=== PATIENT | male | born 1955 | race Caucasian/White ===

== ENCOUNTER 2025-10-01 10:12 | Emergency (ER) | payer MEDICARE, SELFPAY ==
--- OUTSIDE RECORDS SUMMARY | 2025-09-11 09:40 | XMS_ITS | Encounter Summary ---
Author Organization [facility] Address [address], [place] [address] Care Team Providers Care Sweet Dough Mixer Name Role Phone Lui Sims PA-C Primary Care Provider [phone] Reason for Referral * Consult/Transfer Care (Routine) - New Request Specialty Diagnoses / Procedures Referred By Garcia rodriguez Referred To Contact Diagnoses Pain in joint of left shoulder Neck pain Lorin Castellano MD [address] [place] [address] Phone: tel: fax: Referral ID Status Reason Start Date Expiration Date V isits Requested Visits Authorized [id number] New Request 09/11/2025 12/11/2026 1 1 Scheduling Instructions Your clinician has recommended an appointment with [facility]. You can quickly make your appointment online at [email or web address]. You can also call [phone] for help scheduling your appointment. We suggest you call your health insurance company about your coverage and benefits for this appointment. Question Answer Appointment Urgency? Non-Urgent Comments Possible left arm radicular pain MINER * Consult/Transfer Care (Routine) - New Request Specialty Diagnoses / Procedures Referred By Garcia rodriguez Referred To Contact Diagnoses Left wrist pain Pain in joint of left shoulder Lorin Castellano MD [address] [place] [address] Phone: tel: fax: Referral ID Status Reason Start Date Expiration Date V isits Requested Visits Authorized [id number] New Request 09/11/2025 12/11/2026 1 1 Scheduling Instructions Your clinician has recommended an appointment with [facility]. You can quickly schedule your appointment by signing in to your online account at [email or web address] or through the text message you may have received. You can also make an appointment by calling [phone]. We also suggest you call your health insurance provider about your benefits and coverage for this appointment. Question Answer Appointment Urgency? Within 2 Days (designee calls specialty to coordinate care) Comments Has seen Dr. Suarez before and has an appt in a month but is having a lot of pain, not just in the wrist but in the left shoulder as well MINER Reason for Visit * Reason Comments Pain Encounter Details Date Type Department Care Team (Late st Contact Info) Description 09/11/2025 9:40 AM GOLD MINER Office Visit [facility] [address] [place] [address] Lorin Castellano MD [address] [facility] [place] [address] Acute pain of left shoulder; Left wrist pain; Pain in joint of left shoulder; Neck pain; Lumbar pain Social History Tobacco Use Types Packs/Day Years Used Date Smoking Tobacco: Former Cigarettes 0.7 34.5 0 11/02/1968 - 11/02/1991 Smokeless Tobacco: Never Comments:smoked off and on - marijuana Alcohol Use Standard Drinks/Week Comments No 0 (1 standard drink = 0.6 oz pur e alcohol) PHQ-2 Answer Date Recorded PHQ-2 Score 1 12/01/2024 Sex and Gender Information Value Date Recorded Sex Assigned at Not on file Legal Sex Male 4:32 AM CDT Gender Identity Not on file Sexual Orientation Not on file 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 [employer] Not on file Not on file Not on file documented as of this encounter Last Filed Vital Signs Vital Sign Reading Time Taken Comments Blood Pressure 156/70 09/11/2025 10:18 AM GOLD MINER Pulse 54 09/11/2025 10:18 AM GOLD MINER Temperature 36.9 C (98.4 F) 09/11/2025 10:18 AM GOLD MINER Respiratory Rate 16 09/11/2025 10:18 AM GOLD MINER Oxygen Saturation 100% 09/11/2025 10:18 AM GOLD MINER Inhaled Oxygen Concentration - - Weight - - Height - - Body Mass Index - - documented in this encounter Patient Instructions * Patient Instructions* Lorin Castellano MD - 09/11/2025 9:40 AM GOLD MINER Ice the shoulder 30 min 4x/day Voltaren = diclofenac gel can be applied to the shoulder twice daily Can take tylenol 1000 mg every 6 hours in addition or instead of the ibuprofen and it is safer for your stomach and kidneys Make appt with the clinic that does your back injections MINER * Attachments The following attachments cannot be sent through Care Everywhere. * Joint Pain (Yoruba) * Joint Injections: General Info (Yoruba) documented in this encounter Progress Notes * Lorin Castellano MD - 09/11/2025 9:40 AM CST [facility] Patient: Vinicio Kellogg Date of : 1955 (70 y.o.) Subjective Nursing Notes: Yas Graham, RN 09/11/25 1017 Signed States that he is having all over body pain due to old age Has an appt with ortho, but it isnt for another month. History of Present Illness The patient is a 70-year-old with severe arthritis who presents with worsening joint pain and swelling. He has severe arthritis primarily affecting the left hand, with recent increased swelling and pain described as 'awful'. The pain extends into the bones of the hand. The pain has been progressively worsening. The steroid injection in his back has worn off, leading to widespread pain including the buttocks and difficulty walking up stairs. He experiences significant morning stiffness, which improves with movement and medication. He is currently taking ibuprofen, up to ten pills a day, to manage the pain, but expresses concern about the high dosage. Swelling in the fingers is particularly noticeable at night when wearing rings. Additional joint pain is noted in the right wrist and arm, with difficulty performing tasks such aslifting a spoon. He experiences soreness when squeezing his hands. No numbness or tingling. Neck pain is also present. He has a history of back issues, including severe stenosis, and has previously had a CRP test in November, believed to be related to his back problems. He has not had recent imaging. 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 He expresses frustration with his physical limitations and the impact on his daily activities. 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 Physical Exam: BP (!) 156/70 (BP Location: Right Arm, BP Cuff Size: Regular - Long) Pulse (!) 54 Temp 36.9 ??C(98.4 ??F) (Oral) Resp 16 SpO2 100% Gen: Alert and oriented, NAD Normal strength upper extremities but decreased ROM of wrists. He has tenderness left rotator cuff and pain with forward elevation and decreased range of motion due to pain Laboratory Testing: Results for orders placed or performed in visit on 09/11/25 Complete Blood Count-W/Diff Result Value Ref Range WBC 10.0 3.5 - 10.5 x10(9)/L RBC 4.17 (L) 4.32 - 5.72 x10(12)/L Hemoglobin 13.0 (L) 13.5 - 17.5 g/dL HCT 39.2 38.8 - 50.0 % MCV 94.0 80.0 - 100.0 fL MCH 31.2 27.6 - 33.3 pg MCHC 33.2 31.5 - 35.2 g/dL RDW 11.8 (L) 11.9 - 15.5 % Platelets 253 150 - 450 x10(9)/L Neutrophil Absolute 7.7 (H) 1.7 - 7.0 10(9)/L Lymphocyte Absolute 1.3 1.0 - 4.8 10(9)/L Monocyte Absolute 0.8 0.2 - 0.9 10(9)/L Eosinophil Absolute 0.1 0.0 - 0.5 10(9)/L Basophil Absolute 0.0 0.0 - 0.3 10(9)/L Immature Granulocyte % 0.2 0.0 - 0.5 % Radiology: No results found. MDM: known wrist arthritis and he has been receiving lumbar injections and has recurrent right low back and bilateral hip pain/stiffness. Encouraged him to follow up with [facility] who have been doing his lumbar injections. Put in a referral to ortho to try to get him in sooner than a month regarding the wrist arthritis but also address the left shoulder and a referral to PMR to look into his neck and perhaps the left arm pain is radicular. Interventions: Orders Placed This Encounter C-Reactive Protein Complete Blood Count -W/Diff Orthopedic Consult-Adult/Peds Physical Medicine & Rehab Consult-Adults Assessment 1. Acute pain of left shoulder 2. Left wrist pain 3. Pain in joint of left shoulder 4. Neck pain 5. 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 MINER documented in this encounter Plan of Treatment Upcoming Encounters Date Type Department Care Team (Late st Contact Info) Description 10/03/2025 8:35 AM GOLD MINER Appointment [facility] [address] [place] [phone] Lui Sims PA-C [address] [place], [place] [id number] 10/12/2025 2:20 PM GOLD MINER Appointment [facility] Orthopaedics & Sports Medicine [address] [place] [phone] Humberto Suarez MD [address] [facility] [address] [place] [address] 11/14/2025 8:15 AM GOLD MINER Appointment Rheumatology at [facility] [place] [address] [address] [address] [place], [place] [phone] Desilet, Luke W, DO [address] [place], [place] [address] 12/19/2025 8:40 AM GOLD MINER Appointment [facility] Orthopedic [facility] [address] [place], [place] [address] Teresa Espitia MD [address] [place] [address] Scheduled Referrals Name Type Priority Associated Diagnoses Orde r Schedule Orthopedic Consult-Adult/Peds Referral Routine Left wrist pain Pain in joint of left shoulder Ordered: 09/11/2025 Physical Medicine & Rehab Consult-Adults Referral Routine Pain in joint of left shoulder Neck pain Ordered: 09/11/2025 documented as of this encounter Results * (ABNORMAL) C-Reactive Protein (09/11/2025 10:55 AM GOLD MINER) [facility] C-Reactive Protein 10.1(H) 0.0 - 0.5 mg/dL 09/11/2025 12:35 PM GOLD MINER [facility] Blood Venipuncture / Unknown 09/11/2025 10:55 AM GOLD MINER 09/11/2025 10:55 AM GOLD MINER us Lorin Castellano MD LAB_1 Final Result [facility] CLIA: [id number] [address] [place] [address] documented in this encounter Visit Diagnoses Diagnosis Acute pain of left shoulder Left wrist pain Pain in joint, forearm Pain in joint of left shoulder Pain in joint, shoulder region Neck pain Cervicalgia Lumbar pain Lumbago documented in this encounter Care Teams Sweet Dough Mixer Relationship Specialty Start Date End Date Lui Sims PA-C [address] [place] [address] PCP - General Physician Stone Mill Operator 11/13/20 documented as of this encounter
--- OUTSIDE RECORDS SUMMARY | 2025-09-11 10:50 | XMS_ITS | Encounter Summary ---
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[employer] Not on file Not on file Not on file documented as of this encounter Plan of Treatment Upcoming Encounters Date Type Department Care Team (Late Contact Info) Description 10/03/2025 8:35 AM MACHINE SET UP OPERATOR Appointment [facility] [address] [place] [phone] Lui Sims PA-C [address] [place] [address] 10/12/2025 2:20 PM MACHINE SET UP OPERATOR Appointment [facility] Orthopaedics & Sports Medicine [address] [place] [address] Humberto Suarez MD [address] [facility] [address] [place] [address] 11/14/2025 8:15 AM MACHINE SET UP OPERATOR Appointment Rheumatology at [facility] [place] [address] [address] [address] [place], [place] [address] Desilet, René W, DO [address] [place], [place] [address] 12/19/2025 8:40 AM MACHINE SET UP OPERATOR Appointment [facility] Orthopedic [facility] [address] [place] [address] Teresa Espitia MD [address] [place] [address] documented as of this encounter Procedures Procedure Name Priority Date/Time Associated Diagnosis Comments CBC AND DIFFERENTIAL PANEL STAT 09/11/2025 10:55 AM MACHINE SET UP OPERATOR Acute pain of left shoulder Left wrist pain Pain in joint of left shoulder Neck pain COMPLETE BLOOD COUNT-W/DIFF STAT 09/11/2025 10:55 AM MACHINE SET UP OPERATOR Acute pain of left shoulder Left wrist pain Pain in joint of left shoulder Neck pain C-REACTIVE PROTEIN STAT 09/11/2025 10 :55 AM MACHINE SET UP OPERATOR Acute pain of left shoulder Left wrist pain Pain in joint of left shoulder Neck pain documented in this encounter Results * (ABNORMAL) Complete Blood Count-W/Diff (09/11/2025 10:55 AM [facility]) Pathologist [facility] WBC 10.0 3.5 - 10.5 x10(9)/L 09/11/2025 10:59 AM [facility] RBC 4.17(L) 4.32 - 5.72 x10(12)/L 09/11/2025 10:59 AM [facility] Hemoglobin 13.0(L) 13.5 - 17.5 g/dL 09/11/2025 10:59 AM [facility] HCT 39.2 38.8 - 50.0 % 09/11/2025 10:59 AM [facility] MCV 94.0 80.0 - 100.0 fL 09/11/2025 10:59 AM [facility] MCH 31.2 27.6 - 33.3 pg 09/11/2025 10:59 AM [facility] MCHC 33.2 31.5 - 35.2 g/dL 09/11/2025 10:59 AM [facility] RDW 11.8(L) 11.9 - 15.5 % 09/11/2025 10:59 AM [facility] Platelets 253 150 - 450 x10(9)/L 09/11/2025 10:59 AM [facility] Neutrophil Absolute 7.7(H) 1.7 - 7.0 10(9)/L 09/11/2025 10:59 AM [facility] Lymphocyte Absolute 1.3 1.0 - 4.8 10(9)/L 09/11/2025 10:59 AM [facility] Monocyte Absolute 0.8 0.2 - 0.9 10(9)/L 09/11/2025 10:59 AM [facility] Eosinophil Absolute 0.1 0.0 - 0.5 10(9)/L 09/11/2025 10:59 AM [facility] Basophil Absolute 0.0 0.0 - 0.3 10(9)/L 09/11/2025 10:59 AM [facility] Immature Granulocyte % 0.2 0.0 - 0.5 % 09/11/2025 10:59 AM [facility] Blood Venipuncture / Unknown 09/11/2025 10:55 AM MACHINE SET UP OPERATOR 09/11/2025 10:55 AM MACHINE SET UP OPERATOR us Lorin Castellano MD LAB_1 Final Result [facility] CLIA: [id number] [address] [place] [address], [facility] * (ABNORMAL) C-Reactive Protein (09/11/2025 10:55 AM MACHINE SET UP OPERATOR) C-Reactive Protein 10.1(H) 0.0 - 0.5 mg/dL 09/11/2025 12:35 PM MACHINE SET UP OPERATOR [facility] Blood Venipuncture / Unknown 09/11/2025 10:55 AM MACHINE SET UP OPERATOR 09/11/2025 10:55 AM MACHINE SET UP OPERATOR us Lorin Castellano MD LAB_1 Final Result Performing Organization Address City/[facility] Co de Phone Number [facility] CLIA: [id number] [address] [place] [address] documented in this encounter Visit Diagnoses Diagnosis Acute pain of left shoulder Left wrist pain Pain in joint, forearm Pain in joint of left shoulder Pain in joint, shoulder region Neck pain Cervicalgia documented in this encounter Care Teams Music Ministries Director Relationship Specialty Start Date End Date Lui Sims PA-C [address] [place] [address] PCP - General Physician Cotton Breeder 11/13/20 documented as of this encounter
--- OUTSIDE RECORDS SUMMARY | 2025-09-14 07:45 | XMS_ITS | Encounter Summary ---
Author Organization [facility] Address [address], [place] [address] Care Team Providers Care Marbleizing Machine Tender Name Role Phone Lui Sims PA-C Primary Care Provider [phone] Reason for Referral * Procedure/Equipment (Routine) - Incomplete Specialty Diagnoses / Procedures Referred By Contac t Referred To Contact Diagnoses Neck pain Bilateral arm pain Procedures MR Cervical Spine WO IV Cont Ines Carrion PA-C [address] [place] [address] Phone: tel: fax: Referral ID Status Reason Start Date Expiration Date V isits Requested Visits Authorized [id number] Incomplete 09/14/2025 12/14/2026 1 1 ASSISTANT * Procedure/Equipment (Routine) - Incomplete Specialty Diagnoses / Procedures Referred By Contac t Referred To Contact Diagnoses Bilateral shoulder pain, unspecified chronicity Procedures XR Shoulder Rt 2+ Views Ines Carrion PA-C [address] [place] [address] Phone: tel: fax: Referral ID Status Reason Start Date Expiration Date V isits Requested Visits Authorized [id number] Incomplete 09/14/2025 12/14/2026 1 1 ASSISTANT * Procedure/Equipment (Routine) - Incomplete Specialty Diagnoses / Procedures Referred By Contac t Referred To Contact Diagnoses Bilateral shoulder pain, unspecified chronicity Procedures XR Shoulder Lt 2+ Views Ines Carrion PA-C [address] [place] [address] Phone: tel: fax: Referral ID Status Reason Start Date Expiration Date V isits Requested Visits Authorized [id number] Incomplete 09/14/2025 12/14/2026 1 1 ASSISTANT * Procedure/Equipment (Routine) - Incomplete Specialty Diagnoses / Procedures Referred By Contac t Referred To Contact Diagnoses Neck pain Procedures XR Cervical Spine 2 Views Ines Carrion PA-C [address] [place] [address] Phone: tel: fax: Referral ID Status Reason Start Date Expiration Date V isits Requested Visits Authorized [id number] Incomplete 09/14/2025 12/14/2026 1 1 ASSISTANT Reason for Visit * Reason Comments CONSULT Encounter Details Date Type Department Care Team (Late st Contact Info) Description 09/14/2025 7:45 AM DIET ASSISTANT Office Visit [facility] [address] [place] [phone] Ines Carrion PA-C [address] [place] [phone] Neck pain (Primary Dx); Bilateral shoulder pain, unspecified chronicity; Bilateral arm pain; Elevated C-reactive protein (CRP) Social History Tobacco Use Types Packs/Day Years [...] 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 Ines Carrion PA-C Physician Wax Specialist General Orthopedics [facility] Advanced Imaging Scheduling: To schedule advanced imaging including MRI's, CT Scans, Ultrasounds and Fluoroscopic guided injections at a [facility] location please call [phone]. For [facility] MRI please call [phone]. Medication Requests: Prescriptions are not filled on weekends or on weekdays after 3:00 PM. For all medication refills: Request a refill using Uvers[employer]t or contact your pharmacy. [facility] Workers' Compensation [address] [place] [address] (Phone) Email: [email or web address] What is Know Your Cost? Know Your Cost is a service for patients and patient/members to call and receive personalized cost information and estimates across our care group. The phone number is (COST) Thursday - Thursday 8 AM to 5 PM Release of Information: Radiology/Imaging Health Information Management [address] [facility] [address] [place] [address] [place] [address] (Phone) [phone] (Phone) [employer] You can do all of this together: 1000mg Tylenol up to 3 times a day as needed for pain. 600mg ibuprofen every 6 hours as needed for pain, especially before activity. Rub Voltaren Gel/Diclofenac Gel (topical antiinflammatory) over the affected joint up to 4 times a day. Ice for 20 minutes 3-4 times a day, especially after activity. Lidocaine patch - okay for nighttime use, but not recommended during the day. Do not take multiple NSAIDs at the same time. Meaning pick one and stick with that one. They work the same in the body and can cause kidney trouble if you take too much. Examples of NSAIDs: ibuprofen, Motrin, Advil, Naproxen, Aleve, Toradol, Celebrex. It is not recommended to take NSAIDs when also on a blood thinner. ASSISTANT documented in this encounter Progress Notes * Ines Carrion PA-C - 09/14/2025 12:00 AM CST NAME: HALEY VELAZCO CSN: [id number] CLINIC NOTE DATE OF SERVICE: 09/14/2025 : 1955 REASON FOR VISIT: Bilateral shoulder pain. The patient is a 70-year-old male, who comes in today for his bilateral shoulder pain. The patient was seen on 09/11/2025, and was diagnosed with shoulder pain, neck pain, lumbar pain, and wrist pain. The patient states he has an extensive history of discomfort that has been periodic. 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 He states when he turns 67, he had uni ntentional weight loss and lost quite a bit of weight. He had a full workup looking for cancerous process, but nothing was made of it. He started having more lumbar pain, which sounds like he has been managed over at [facility] and he has had injections. He is now complaining about wrist pain, which he has a followup appointment with Dr. Suarez for, as well as bilateral shoulder and neck pain. He states any reaching overhead, he feels weakness. He feels limited mobility. He has pain that pulls down to the upper trapezius area and radiates into both arms. He has limited neck mobility. He denies any previous injury. He did have lab testing that was done in Urgent Care, which showed his C-reactive protein was 10.1. His CBC was normal except for some low hemoglobin. PHYSICAL EXAM: Patient has marked limitation with rotation, flexion and extension, and bending of his neck with pain that radiates down both arms. His shoulder range of motion is near full in all planes and his strength is 5/5 with subscap and infraspinatus testing, and negative drop-arm test, negative empty can test. Impingement signs were not aggravating. Upper extremity strength; he does have 4/5 strength in his biceps on the left, 4/5 with triceps on the right, 5/5 in all muscle groups. There is no significant strength deficit or weakness otherwise noted. Neurovascular exam is intact. X-rays of the bilateral shoulders were taken today and independently reviewed. Three views of the left shoulder show no significant arthritis in the AC joint. A little bit of joint space narrowing inthe glenohumeral joint. His right shoulder has mild superior subluxation of the humerus, but no significant degenerative change of the joint. 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 There is multilevel and severe intervertebral disk space narrowing and extensive osteophytic spurring. IMPRESSION: Cervical radiculopathy secondary to neck degeneration. PLAN: I discussed options with the patient. I did recommend an MRI. I put him on Medrol Dosepak andwe are going to have him follow up with my supervisory training specialist. I did review the MRI and further treatment options. I do question if he does not have some sort of underlying ankylosing spondylitis basedon his CRP being elevated and his x-ray findings. He does have multiple other joint complaints and I have to wonder that there might be something underlying that might be triggering this despite justdegenerative changes related to aging. The patient will follow up with 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. I did put him on a Medrol Dosepak for pain. All his questions were answered. INES CARRION PA-C EMS/AQS /[id number] ASSISTANT documented in this encounter Plan of Treatment Upcoming Encounters Date Type Department Care Team (Late st Contact Info) Description 10/03/2025 8:35 AM DIET ASSISTANT Appointment [facility] [address] [place] [phone] Lui Sims PA-C [address] [place], [place] [phone] 10/12/2025 2:20 PM DIET ASSISTANT Appointment [facility] [address] [place] [phone] Humberto Suarez MD [address] [facility] [address] [place], [place] [address] 11/14/2025 8:15 AM DIET ASSISTANT Appointment Rheumatology at [facility] [place] [address] [address] [address] [place], [place] [address] Desilet, René W, DO [address] [place] [address] 12/19/2025 8:40 AM DIET ASSISTANT Appointment [facility] Orthopedic [facility] [place] [address] [place], [place] [address] Teresa Espitia MD [address] [place], [place] [address] documented as of this encounter Results * MR Cervical Spine WO IV Cont (09/14/2025 11:23 AM DIET ASSISTANT) Anatomical Region Laterality Modality Spine, C-Spine, Neck, Vascular, MSK Magnetic Resonance Impressions 09/15/2025 2:32 PM DIET ASSISTANT 1. Severe bilateral neural foraminal stenosis at the C3-4 level. 2. Zpwf-yo-rmrbwclw central stenosis and severe left-sided neural foraminal stenosis at the C4-5 level. 3. Mild central stenosis and moderate right-sided neural foraminal stenosis at the C6-7 level. 4. Moderate to severe bilateral neural foraminal stenosis at the C7-T1 level. 5. Additional degenerative changes as above. No evidence for spinal cord signal abnormality. Signed by: Nino Jacobs 09/15/2025 2:32 PM Narrative 09/15/2025 2:32 PM DIET ASSISTANT EXAM: MR CERVICAL SPINE WO IV CONT INDICATION: neck pain with bilateral radiculopathy COMPARISON: None. TECHNIQUE: MRI of the cervical spine without contrast. FINDINGS: Sagittal: Mild reversal of the cervical lordosis. Probable disc space calcification C2-3 C5-6 level. Disc space narrowing mild degenerative endplate signal change C4-5 C6-7 level. Disc space narrowing partial fusion across the C5-6 disc space. 2 mm anterolisthesis T1-2 T3-4 level. Craniocervical junction, cervical spinal cord and upper visualized thoracic spinal cord appear otherwise unremarkable. Axial: C1-2 level: Hhjl-ao-auouooki degenerative ligamentous hypertrophy dorsal to the odontoid. C2-3 level: Mild right-sided facet hypertrophic change. C3-4 level: Severe bilateral neural foraminal stenosis secondary to uncinate spurring and moderate right-sided facet hypertrophic change, axial images 16. C4-5 level: Yqfa-tq-vexgozvg posterior disc osteophyte complex contributes to fetr-io-ggezysqz central stenosis AP thecal sac 8 mm. Mild right-sided severe left-sided neural foraminal stenosis secondary to uncinate spurring and mild bilateral facet hypertrophic change. C5-6 level: Mild posterior osteophytic ridge, moderate left-sided neural foraminal stenosis secondary to uncinate spurring and mild left-sided facet hypertrophic change. C6-7 level: Mild posterior disc osteophyte complex contributes to mild central stenosis AP thecal sac 9 mm. Moderate right-sided neural foraminal stenosis secondary to uncinate spurring. C7-T1 level: Mild posterior disc osteophyte complex, moderate to severe bilateral neural foraminal stenosis. T1-2 level: Mild posterior disc bulge, mild right-sided neural foraminal stenosis. Procedure Note Nino Jacobs MD - 09/15/2025 EXAM: MR CERVICAL SPINE WO IV CONT INDICATION: neck pain with bilateral radiculopathy COMPARISON: None. TECHNIQUE: MRI of the cervical spine without contrast. FINDINGS: Sagittal: Mild reversal of the cervical lordosis. Probable disc space calcificationC2-3 C5-6 level. Disc space narrowing mild degenerative endplate signalchange C4-5 C6-7 level. Disc space narrowing partial fusion across theC5-6 disc space. 2 mm anterolisthesis T1-2 T3-4 level. Craniocervicaljunction, cervical spinal cord and upper visualized thoracic spinal cordappear otherwise unremarkable. Axial: C1-2 level: Skzk-ey-bnouljaw degenerative ligamentous hypertrophy dorsalto the odontoid. C2-3 level: Mild right-sided facet hypertrophic change. C3-4 level: Severe bilateral neural foraminal stenosis secondary touncinate spurring and moderate right-sided facet hypertrophic change,axial images 16. C4-5 level: Jbqm-lo-otdpdmoi posterior disc osteophyte complex contributesto itxf-if-eawwofii central stenosis AP thecal sac 8 mm. Mild right-sidedsevere left-sided neural foraminal stenosis secondary to uncinate spurringand mild bilateral facet hypertrophic change. C5-6 level: Mild posterior osteophytic ridge, moderate left-sided neuralforaminal stenosis secondary to uncinate spurring and mild left-sidedfacet hypertrophic change. C6-7 level: Mild posterior disc osteophyte complex contributes to mildcentral stenosis AP thecal sac 9 mm. Moderate right-sided neuralforaminal stenosis secondary to uncinate spurring. C7-T1 level: Mild posterior disc osteophyte complex, moderate to severebilateral neural foraminal stenosis. T1-2 level: Mild posterior disc bulge, mild right-sided neural foraminalstenosis. IMPRESSION 1. Severe bilateral neural foraminal stenosis at the C3-4 level. 2. Rglb-pw-hqzggsfw central stenosis and severe left-sided neuralforaminal stenosis at the C4-5 level. 3. Mild central stenosis and moderate right-sided neural foraminalstenosis at the C6-7 level. 4. Moderate to severe bilateral neural foraminal stenosis at the C7-X1olsty. 5. Additional degenerative changes as above. No evidence for spinal cordsignal abnormality. Signed by: Nino Jacobs 09/15/2025 2:32 PM us Ines Carrion PA-C RAD MRI Final Result * XR Shoulder Rt 2+ Views (09/14/2025 8:10 AM DIET ASSISTANT) Anatomical Region Laterality Modality Upper Extremity, Shoulder Digita l Radiography Narrative 09/14/2025 8:12 AM DIET ASSISTANT EXAM: XR SHOULDER RT 2+ VIEWS INDICATION: bilateral shoulder pain COMPARISON: None. FINDINGS: No acute findings. Mild superior subluxation of the humerus. No significant degenerative change of the glenohumeral joint. Mild AC joint arthropathy. Signed by: Alfonzo Vital 09/14/2025 8:12 AM Procedure Note Alfonzo Vital MD - 09/14/2025 EXAM: XR SHOULDER RT 2+ VIEWS INDICATION: bilateral shoulder pain COMPARISON: None. FINDINGS: No acute findings. Mild superior subluxation of the humerus. Nosignificant degenerative change of the glenohumeral joint. Mild AC jointarthropathy. Signed by: Alfonzo Vital 09/14/2025 8:12 AM us Ines BHATTI-C RAD GD Final Result * XR Shoulder Lt 2+ Views (09/14/2025 8:09 AM DIET ASSISTANT) Anatomical Region Laterality Modality Upper Extremity, Shoulder Digita l Radiography Narrative 09/14/2025 8:12 AM DIET ASSISTANT EXAM: XR SHOULDER LT 2+ VIEWS INDICATION: shoulder pain COMPARISON: None. FINDINGS: Minimal in head humeral joint space and acromiohumeral interval maintained. No fracture or dislocation. Soft tissues normal. Visualized lung clear. Signed by: James Bethea 09/14/2025 8:12 AM Procedure Note James Bethea MD - 09/14/2025 EXAM: XR SHOULDER LT 2+ VIEWS INDICATION: shoulder pain COMPARISON: None. FINDINGS: Minimal in head humeral joint space and acromiohumeral intervalmaintained. No fracture or dislocation. Soft tissues normal. Visualizedlung clear. Signed by: James Bethea 09/14/2025 8:12 AM us Ines BHATTI-C RAD GD Final Result * XR Cervical Spine 2 Views (09/14/2025 8:09 AM DIET ASSISTANT) Anatomical Region Laterality Modality Spine, C-Spine, Neck Digital Rad iography Narrative 09/14/2025 8:14 AM DIET ASSISTANT EXAM: XR CERVICAL SPINE 2 VIEWS INDICATION: neck pain COMPARISON: None. FINDINGS: No definite acute osseous abnormality. Straightening of cervical lordosis. Normal alignment of the cervical spine. Extensive degenerative change with osteophytic spurring. Multilevel severe intervertebral disc space narrowing with likely degenerative ankylosis at C5-6. No prevertebral soft tissue swelling. Signed by: Bhavya Reich 09/14/2025 8:14 AM Procedure Note Bhavya Reich MD - 09/14/2025 EXAM: XR CERVICAL SPINE 2 VIEWS INDICATION: neck pain COMPARISON: None. FINDINGS: No definite acute osseous abnormality. Straightening of cervicallordosis. Normal alignment of the cervical spine. Extensive degenerativechange with osteophytic spurring. Multilevel severe intervertebral discspace narrowing with likely degenerative ankylosis at C5-6. Noprevertebral soft tissue swelling. Signed by: Bhavya Reich 09/14/2025 8:14 AM Ines Carrion PA-C RAD GD Final Result documented in this encounter Visit Diagnoses Diagnosis Neck pain- Primary Cervicalgia Bilateral shoulder pain, unspecified chronicity Bilateral arm pain Pain in limb Elevated C-reactive protein (CRP) Neck pain Cervicalgia Bilateral shoulder pain, unspecified chronicity Bilateral shoulder pain, unspecified chronicity Neck pain Cervicalgia Bilateral arm pain Pain in limb documented in this encounter Care Teams Marbleizing Machine Tender Relationship Specialty Start Date End Date Lui Sims PA-C [address] [place] [address] PCP - General Physician Wax Specialist 11/13/20 documented as of this encounter
--- OUTSIDE RECORDS SUMMARY | 2025-09-14 07:55 | XMS_ITS | Encounter Summary ---
Author Organization [facility] Address [address] [address] Care Team Providers Care Strainer Mill Operator Name Role Phone Lui Sims PA-C Primary Care Provider [phone] Reason for Visit * Procedure/Equipment (Routine) - Incomplete Specialty Diagnoses / Procedures Referred By Garcia t Referred To Contact Diagnoses Neck pain Procedures XR Cervical Spine 2 Views Kaylah Carrion PA-C [address] [place] [address] Phone: tel: fax: Referral ID Status Reason Start Date Expiration Date V isits Requested Visits Authorized [id number] Incomplete 09/14/2025 12/14/2026 1 1 Encounter Details Date Type Department Care Team (Late st Contact Info) Description 09/14/2025 7:55 AM LEARNING SUPPORT ASSISTANT Ancillary Procedure [facility] [place] [address] Radiology [address] [place] [address] Kaylah Carrion PA-C [address] [place] [address] Neck pain Social History Tobacco Use Types [...] 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 [employer] Not on file Not on file Not on file documented as of this encounter Plan of Treatment Upcoming Encounters Date Type Department Care Team (Late st Contact Info) Description 10/03/2025 8:35 AM LEARNING SUPPORT ASSISTANT Appointment [facility] [address] [place] [phone] Lui Sims, PAAdelfoC [address] [place] [address] 10/12/2025 2:20 PM LEARNING SUPPORT ASSISTANT Appointment [facility] Medicine [address] [place] [address] Humberto Suarez MD [address] [facility] [address] [place] [address] 11/14/2025 8:15 AM LEARNING SUPPORT ASSISTANT Appointment Rheumatology at [facility] [place] [address] [address] [address] [place], [place] [address] Desilet, René W, DO [address] [place] [address] 12/19/2025 8:40 AM LEARNING SUPPORT ASSISTANT Appointment [facility] [place] [address] [place] [address] Teresa Espitia MD [address] [facility] [address] documented as of this encounter Procedures Procedure Name Priority Date/Time Associated Diagnosis Comments XR CERVICAL SPINE 2 VIEWS Routine 09/14/2025 8:09 AM LEARNING SUPPORT ASSISTANT Neck pain documented in this encounter Results * XR Cervical Spine 2 Views (09/14/2025 8:09 AM LEARNING SUPPORT ASSISTANT) Anatomical Region Laterality Modality Spine, C-Spine, Neck Digital Rad iography Narrative 09/14/2025 8:14 AM LEARNING SUPPORT ASSISTANT EXAM: XR CERVICAL SPINE 2 VIEWS [...] Signed by: Bhavya Reich 09/14/2025 8:14 AM Kaylah Carrion PA-C RAD GD Final Result documented in this encounter Visit Diagnoses Diagnosis Neck pain Cervicalgia documented in this encounter Care Teams Strainer Mill Operator Relationship Specialty Start Date End Date Lui Sims PA-C [address] [place] [address] PCP - General Physician Production Maintenance Mechanic 11/13/20 documented as of this encounter
--- OUTSIDE RECORDS SUMMARY | 2025-09-14 08:05 | XMS_ITS | Encounter Summary ---
Author Organization [facility] Address [address] [address] Care Team Providers Care Tube Filler Name Role Phone Lui Sims PA-C Primary Care Provider [phone] Reason for Visit * Procedure/Equipment (Routine) - Incomplete Specialty Diagnoses / Procedures Referred By Contdevante t Referred To Contact Diagnoses Bilateral shoulder pain, unspecified chronicity Procedures XR Shoulder Lt 2+ Views Kaylah Carrion PA-C [address] [place] [address] Phone: tel: fax: Referral ID Status Reason Start Date Expiration Date V isits Requested Visits Authorized [id number] Incomplete 09/14/2025 12/14/2026 1 1 Encounter Details Date Type Department Care Team (Latest Contact Info) Description 09/14/2025 8:05 AM STEEL ROLLER Ancillary Procedure Dayana [place] [address] Rad[address] [address] [place] [address] Kaylah Carrion PA-C [address] [place] [address] [phone] Bilateral shoulder pain, unspecified chronicity Social History Tobacco Use Types Packs/Day Years [...] 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 [address] [place], [place] [address] 11/14/2025 8:15 AM STEEL ROLLER Appointment Rheumatology at [facility] [place] [address] [address] [address] [place] [address] Despatiencet, René W, DO [address] [place] [address] 12/19/2025 8:40 AM STEEL ROLLER Appointment [facility] [place] [address] [place] [address] Teresa Espitia MD [address] [facility] [place] [address] documented as of this encounter Procedures Procedure Name Priority Date/Time Associated Diagnosis Comments XR SHOULDER LT 2+ VIEWS Routine 09/14/2025 8:09 AM STEEL ROLLER Bilateral shoulder pain, unspecified chronicity documented in this encounter Results * XR Shoulder Lt 2+ Views (09/14/2025 8:09 AM STEEL ROLLER) Anatomical Region Laterality Modality Upper Extremity, Shoulder Digita l Radiography Narrative 09/14/2025 8:12 AM STEEL ROLLER EXAM: XR SHOULDER LT 2+ VIEWS INDICATION: [...] by: James Bethea 09/14/2025 8:12 AM us Kaylah Carrion PA-C RAD GD Final Result documented in this encounter Visit Diagnoses Diagnosis Bilateral shoulder pain, unspecified chronicity documented in this encounter Care Teams Tube Filler Relationship Specialty Start Date End Date Lui Sims PA-C [address] [place] [address] PCP - General Physician Ore Storage Drier 11/13/20 documented as of this encounter
--- OUTSIDE RECORDS SUMMARY | 2025-09-14 08:10 | XMS_ITS | Encounter Summary ---
Author Organization [facility] Address [address], [place] [address] Care Team Providers Care Metal Inspector Name Role Phone Lui Sims PA-C Primary Care Provider [phone] Reason for Visit * Procedure/Equipment (Routine) - Incomplete Specialty Diagnoses / Procedures Referred By Contdevante t Referred To Contact Diagnoses Bilateral shoulder pain, unspecified chronicity Procedures XR Shoulder Rt 2+ Views Kaylah Carrion PA-C [address] [place] [address] Phone: tel: fax: Referral ID Status Reason Start Date Expiration Date V isits Requested Visits Authorized [id number] Incomplete 09/14/2025 12/14/2026 1 1 Encounter Details Date Type Department Care Team (Latest Contact Info) Description 09/14/2025 8:10 AM DIRECTOR OF MEDICAL STAFF SERVICES Ancillary Procedure Dayana [place] [address] [address] [address] [place] [address] Kaylah Carrion PA-C [address] [place] [address] Bilateral shoulder pain, unspecified chronicity Social History [...] 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 [employer] Not on file Not on file Not on file documented as of this encounter Plan of Treatment Upcoming Encounters Date Type Department Care Team (Late st Contact Info) Description 10/03/2025 8:35 AM DIRECTOR OF MEDICAL STAFF SERVICES Appointment [facility] [address] [place] [phone] Lui Sims PA-C [address] [place], [place] [phone] 10/12/2025 2:20 PM DIRECTOR OF MEDICAL STAFF SERVICES Appointment [facility] [address] [place] [phone] Humberto Suarez MD [address] [facility] [address] [place], [place] [address] 11/14/2025 8:15 AM DIRECTOR OF MEDICAL STAFF SERVICES Appointment Rheumatology at [facility] [place] [address] [address] [address] [place] [address] Despatiencet, René W, DO [address] [place] [address] 12/19/2025 8:40 AM DIRECTOR OF MEDICAL STAFF SERVICES Appointment [facility] [place] [address] [place] [address] Teresa Espitia MD [address] [facility] [place] [address] documented as of this encounter Procedures Procedure Name Priority Date/Time Associated Diagnosis Comments XR SHOULDER RT 2+ VIEWS Routine 09/14/2025 8:10 AM DIRECTOR OF MEDICAL STAFF SERVICES Bilateral shoulder pain, unspecified chronicity documented in this encounter Results * XR Shoulder Rt 2+ Views (09/14/2025 8:10 AM DIRECTOR OF MEDICAL STAFF SERVICES) Anatomical Region Laterality Modality Upper Extremity, Shoulder Digita l Radiography Narrative 09/14/2025 8:12 AM DIRECTOR OF MEDICAL STAFF SERVICES EXAM: XR SHOULDER RT 2+ VIEWS INDICATION: [...] Signed by: Alfonzo Vital 09/14/2025 8:12 AM Kaylah Carrion PA-C RAD GD Final Result documented in this encounter Visit Diagnoses Diagnosis Bilateral shoulder pain, unspecified chronicity documented in this encounter Care Teams Metal Inspector Relationship Specialty Start Date End Date Lui Sims PA-C [address] [place] [address] PCP - General Physician Cardiographer 11/13/20 documented as of this encounter
--- OUTSIDE RECORDS SUMMARY | 2025-09-14 11:00 | XMS_ITS | Encounter Summary ---
Author Organization [facility] Address [address] [address] Care Team Providers Care Furniture Crater Name Role Phone Lui Sims PA-C Primary Care Provider [phone] Reason for Visit * Procedure/Equipment (Routine) - Incomplete Specialty Diagnoses / Procedures Referred By Garcia rodriguez Referred To Contact Diagnoses Neck pain Bilateral arm pain Procedures MR Cervical Spine WO IV Cont Kaylah Carrion PA-C [address] [place] [address] Phone: tel: fax: Referral ID Status Reason Start Date Expiration Date V isits Requested Visits Authorized [id number] Incomplete 09/14/2025 12/14/2026 1 1 Encounter Details Date Type Department Care Team (Latest Contact Info) Description 09/14/2025 11:00 AM PAVING STONE INSTALLER Ancillary Procedure Dayana [place] [address] [place] [address] [place] [address] Kaylah Carrion PA-C [address] [place] [id number] Neck pain; Bilateral arm pain Social History Tobacco Use Types Packs/Day [...] 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[employer] Not on file Not on file Not on file documented as of this encounter Plan of Treatment Upcoming Encounters Date Type Department Care Team (Late st Contact Info) Description 10/03/2025 8:35 AM PAVING STONE INSTALLER Appointment [facility] [address] [place] [phone] Lui Sims PAAdelfoC [address] [place] [address] 10/12/2025 2:20 PM PAVING STONE INSTALLER Appointment [facility] Orth[facility] Sports Medicine [address] [place] [address] Humberto Suarez MD [address] [facility] [address] [place], [place] [address] 11/14/2025 8:15 AM PAVING STONE INSTALLER Appointment Rheumatology at [facility] [place] [address] [address] [address] [place] [address] René Rivas W, DO [address] [place] [address] 12/19/2025 8:40 AM PAVING STONE INSTALLER Appointment [facility] [place] [address] [place] [address] Teresa Espitia MD [address] [facility] [place] [address] documented as of this encounter Procedures Procedure Name Priority Date/Time Associated Diagnosis Comments MR CERVICAL SPINE WO IV CONT Routine 09/14/2025 11:23 AM PAVING STONE INSTALLER Neck pain Bilateral arm pain documented in this encounter Results * MR Cervical Spine WO IV Cont (09/14/2025 11:23 AM PAVING STONE INSTALLER) Anatomical Region Laterality Modality Spine, C-Spine, Neck, Vascular, MSK Magnetic Resonance Impressions 09/15/2025 2:32 PM PAVING STONE INSTALLER 1. Severe bilateral neural foraminal stenosis at the C3-4 level. 2. Xxql-sd-izagzxlp central stenosis and severe left-sided neural foraminal stenosis at the C4-5 level. 3. Mild central stenosis and moderate right-sided neural foraminal stenosis at the C6-7 level. 4. Moderate to severe bilateral neural foraminal stenosis at the C7-T1 level. 5. Additional degenerative changes as above. No evidence for spinal cord signal abnormality. Signed by: Nino Jacobs 09/15/2025 2:32 PM [place] 09/15/2025 2:32 PM PAVING STONE INSTALLER EXAM: MR CERVICAL SPINE WO IV CONT [...] cord appear otherwise unremarkable. Axial: C1-2 level: Xafq-wd-peyepfrs degenerative ligamentous hypertrophy dorsal to the odontoid. C2-3 level: Mild right-sided facet hypertrophic change. C3-4 level: Severe bilateral neural foraminal stenosis secondary to uncinate spurring and moderate right-sided facet hypertrophic change, axial images 16. C4-5 level: Vlia-by-fmwnpawx posterior disc osteophyte complex contributes to hupf-hx-fravogzf central stenosis AP thecal sac 8 mm. [...] spinal cordappear otherwise unremarkable. Axial: C1-2 level: Odai-fm-lqdxotsw degenerative ligamentous hypertrophy dorsalto the odontoid. C2-3 level: Mild right-sided facet hypertrophic change. C3-4 level: Severe bilateral neural foraminal stenosis secondary touncinate spurring and moderate right-sided facet hypertrophic change,axial images 16. C4-5 level: Rpij-se-vnjcdzyu posterior disc osteophyte complex contributesto pqnd-uq-jjmqyuzk central stenosis AP thecal sac 8 mm. [...] foraminal stenosis at the C3-4 level. 2. Qfgq-hf-keaepywi central stenosis and severe left-sided neuralforaminal stenosis at the C4-5 level. 3. Mild central stenosis and moderate right-sided neural foraminalstenosis at the C6-7 level. 4. Moderate to severe bilateral neural foraminal stenosis at the C7-C1czbkn. 5. Additional degenerative changes as above. No evidence for spinal cordsignal abnormality. Signed by: Nino Jacobs 09/15/2025 2:32 PM us Kaylah Carrion PA-C RAD MRI Final Result documented in this encounter Visit Diagnoses Diagnosis Neck pain Cervicalgia Bilateral arm pain Pain in limb documented in this encounter Care Teams Furniture Crater Relationship Specialty Start Date End Date Lui Sims PA-C [address] [place] [address] PCP - General Physician Chief Mechanical Officer 11/13/20 documented as of this encounter
--- OUTSIDE RECORDS SUMMARY | 2025-09-21 13:00 | XMS_ITS | Encounter Summary ---
Author Organization [facility] Address [address] [place] [address] Care Team Providers Care Supervisor Public Health Nursing Name Role Phone Lui Sims PA-C Primary Care Provider [phone] Reason for Referral * Consult/Transfer Care (Routine) - New Request Specialty Diagnoses / Procedures Referred By Garcia t Referred To Contact Diagnoses Cervical radiculopathy Foraminal stenosis of cervical region 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, MANAGER CARDIAC CATH, DIRECTORY CLERK [address] [place] [address] Phone: tel: fax: Referral ID Status Reason Start Date Expiration Date V isits Requested Visits Authorized [id number] New Request 09/21/2025 12/21/2026 1 1 Scheduling Instructions Your clinician has recommended an appointment with a [facility] Surgeon. You can quickly schedule your appointment by signing in to your online account at [email or web address] or through the text message you may have received. You can also call [phone] for help scheduling your appointment. We suggest you call your health insurance company about your coverage and benefits for this appointment. Question Answer Appointment Urgency? Non-urgent Reason for visit? Cervical radiculopathy Comments Hemoglobin A1C Date Value Ref Range Status 06/01/2024 6.1 (H) <=5.6 % Final Estimated body mass index is 22.53 kg/m as calculated from the following: Height as of 07/11/24: 1.778 m (5' 10). Weight as of 12/01/24: 71.2 kg (157 lb). Social History Tobacco Use Smoking status: Former Packs/day: 0.00 Years: 0.7 packs/day for 34.5 years (23.0 ttl pk-yrs) Types: Cigarettes Start date: 11/02/1968 Quit date: 11/02/1991 Years since quittin.9 Smokeless tobacco: Never Tobacco comments: smoked off and on - marijuana Please note, A1c>8, a BMI >40 or <18.5 or a positive nicotine status will delay surgical recommendations given the negative impact on surgical outcome for the patient. 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 Jimy Farrar. Contact [facility] to schedule. 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 CNP Orthopedic Spine [facility] E SHEAR OPERATOR documented in this encounter Progress Notes * 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 APRN, CNP - 09/21/2025 1:00 PM CST Images from the original note were not included. [facility]: HPI: Vinicio Kellogg is a 70 y.o. male who presents today for initial consult for neck pain. He feels he probably has experienced pain for years although it really started to become noticeable about one week ago when he was seen at [facility]. He was prescribed a Medrol Dose Pack and is really not sure if it was helpful. He rates his pain 10/10. He is somewhat nonspecific to his pain pattern although notes constant pain along the bilateral neck. His neck pain bothers him with turning his head. 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 He describes arm pain, non-specific to his arm pain pattern. He has bilateral wrist pain with arthritis, Left>Right, and sees Dr. Suarez. He notes N/T along the ring and small finger of the right hand. He describes weakness to the hands bilaterally. He has a h/o low back pain as well and is seen at [facility] and had previous lumbar TANNER in 10/2024 which he found helpful. He takes ibuprofen for his pain prn and finds it somewhat helpful. He also uses ice to the painful areas. He has not had recent cervical spine injections or PT for his neck pain. He notes his balance has been off sometimes. He denies falls. He denies bowel/bladder incontinence. Past Medical History[1] Problem List[2] Review Of Systems Musculoskeletal: neck pain Neurologic: N/T right hand ROS: 10 point ROS neg other than the symptoms noted above in the HPI. PHYSICAL EXAM: HEENT: Normocephalic, atraumatic. EOM's intact. Heart: No peripheral edema Lungs: No SOB Skin: Warm and dry, good capillary refill. Extremities: no edema, cyanosis NEUROLOGICAL EXAMINATION: Mental status: Awake and alert; answers questions appropriately, speech is fluent. Cranial nerves: II-XII grossly intact. Motor: Shoulder Abduction: Right: 03/06 Left: 03/06 Biceps: Right: 03/06 Left: 03/06 Triceps: Right: 03/06 Left: 03/06 Wrist Extensors: Right: 03/06 Left: 03/06 Wrist Flexors: Right: 03/06 Left: 03/06 interosseus : Right: 03/06 Left: 03/06 Hip Flexor: Right: 03/06 Left: 03/06 Hip Adductor: Right: 03/06 Left: 03/06 Hip Abductor: Right: 03/06 Left: 03/06 Gastroc Soleus: Right: 03/06 Left: 03/06 Tib/Ant: Right: 03/06 Left: 03/06 EHL: Right: 03/06 Left: 03/06 DF: Right: 03/06 Left: 03/06 PF: Right: 03/06 Left: 03/06 Reflexes: BUE DTR: Biceps 2+ symmetric Brachioradialis 1+ symmetric BLE DTR: Patellar: 2+ symmetric Achilles: 1+ symmetric Sensation intact to light touch to BUE Clonus negative Parry's test positive Spurling's test positive Gait: Stable, independent Cervical examination reveals good limited of motion with pain. Diffuse tenderness to palpation of the cervical spine along the paraspinous muscles bilaterally. Lumbar examination reveals tenderness of the spine midline and bilateral paraspinous muscles. Limited ROM. Negative SI joint, sciatic notch or greater trochanteric tenderness to palpation bilaterally. Straight leg raise is negative bilaterally. Imaging: MR Cervical Spine WO IV Cont Order: [id number] Status: Final result Next appt: Today at 03:30 PM in Orthopedics (Humberto Suarez MD) Dx: Neck pain; Bilateral arm pain Test Result Released: Yes (seen) Details Reading Physician Reading Date Result Priority Nino Jacobs MD [phone] 09/15/2025 Routine Narrative & Impression EXAM: MR CERVICAL SPINE WO IV CONT [...] cord appear otherwise unremarkable. Axial: C1-2 level: Kwdf-gd-xvtimiwx degenerative ligamentous hypertrophy dorsal to the odontoid. C2-3 level: Mild right-sided facet hypertrophic change. C3-4 level: Severe bilateral neural foraminal stenosis secondary to uncinate spurring and moderate right-sided facet hypertrophic change, axial images 16. C4-5 level: Ihsv-yz-rjyrkjhv posterior disc osteophyte complex contributes to txbv-vn-gpznjpwq central stenosis AP thecal sac 8 mm. [...] disc bulge, mild right-sided neural foraminal stenosis. IMPRESSION 1. Severe bilateral neural foraminal stenosis at the C3-4 level. 2. Yzxo-iw-pcroobjk central stenosis and severe left-sided neural foraminal stenosis at the C4-5 level. 3. Mild central stenosis and moderate right-sided neural foraminal stenosis at the C6-7 level. 4. Moderate to severe bilateral neural foraminal stenosis at the C7-T1 level. 5. Additional degenerative changes as above. No evidence for spinal cord signal abnormality. Signed by: Nino Jacobs 09/15/2025 2:32 PM Exam Ended: 09/14/25 11:23 Last Resulted: 09/15/25 14:32 XR Cervical Spine 2 Views Order: [id number] Status: Final result Next appt: 09/26/2025 at 09:30 AM in Orthopedics (Jimy Farrar MD) Dx: Neck pain Test Result Released: Yes (seen) Details Reading Physician Reading Date Result Priority Bhavya Reich MD [phone] 09/14/2025 Routine Narrative & Impression EXAM: XR CERVICAL SPINE 2 VIEWS INDICATION: neck pain COMPARISON: None. FINDINGS: No definite acute osseous abnormality. Straightening of cervical lordosis. Normal alignment of the cervical spine. Extensive degenerative change with osteophytic spurring. Multilevel severe intervertebral disc space narrowing with likely degenerative ankylosis at C5-6. No prevertebral soft tissue swelling. Signed by: Bhavya Reich 09/14/2025 8:14 AM Exam Ended: 09/14/25 08:09 Last Resulted: 09/14/25 08:14 Assessment: I reviewed Vinicio's cervical MRI results with significant canal narrowing at C4- 5 with partial discspace fusion at C5-6. He has multilevel foraminal narrowing likely contributing to his pain as well. He is somewhat nonspecific to his pain pattern along the BUE however, notes his BUE are weak and he has N/T. He has full strength one exam, although appears uncomfortable with some strength testing with resistance. I was able to appreciate mild positive Parry's on exam. I would like him to f/u for evaluation with Dr. Farrar for recommendations for next step treatment options and he is agreeable. He had MRI, cervical A/P and lateral XR. I informed him that he would likely need further XR athis visit with Dr. Farrar including flexion and extension to view stability of the spine. If he has any questions he will contact the clinic. Plan: 1) Tizanidine as needed (do not drive while taking, only take while at home) 2) Schedule appointment with ortho/spine Dr. Jimy Farrar. Contact [facility] to schedule. 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) Essential hypertension (HRC) Tear film insufficiency Tubular adenoma Depression, major (HRC) Prediabetes CAREPLAN: ADVANCE DIRECTIVES/CODE STATUS Choroidal nevus Dermatochalasis of both upper eyelids Nuclear sclerosis Adenomatous polyp of colon Pancreatic cyst (HRC) E SHEAR OPERATOR documented in this encounter Plan of Treatment Upcoming Encounters Date Type Department Care Team (Late st Contact Info) Description 10/03/2025 8:35 AM ANGLE SHEAR OPERATOR Appointment [facility] [address] [place] [phone] Lui Sims PA-C [address] [place] [address] 10/12/2025 2:20 PM ANGLE SHEAR OPERATOR Appointment [facility] [address] [place] [phone] Humberto Suarez MD [address] [facility] [address] [place] [address] 11/14/2025 8:15 AM ANGLE SHEAR OPERATOR Appointment Rheumatology at [facility] [place] [address] [address] [address] [place], [place] [address] René Rivas DO [address] [place], [place] [address] 12/19/2025 8:40 AM ANGLE SHEAR OPERATOR Appointment [facility] [place] [address] [place], [place] [address] Teresa Espitia MD [address] [place] [address] Scheduled Referrals Name Type Priority Associated Diagnoses Orde r Schedule Spine-Surgical Consult-Adults Referral Routine Cervical radiculopathy Foraminal stenosis of cervical region Ordered: 09/21/2025 documented as of this encounter Visit Diagnoses Diagnosis Cervical radiculopathy- Primary Brachial neuritis or radiculitis nos Foraminal stenosis of cervical region Spinal stenosis in cervical region Neck pain Cervicalgia Cervical stenosis of spinal canal Spinal stenosis in cervical region DDD (degenerative disc disease), cervical (HRC) Degeneration of cervical intervertebral disc documented in this encounter Care Teams Supervisor Public Health Nursing Relationship Specialty Start Date End Date Lui Sims PA-C [address] [place] [address] PCP - General Physician Director [employer] 11/13/20 documented as of this encounter
--- OUTSIDE RECORDS SUMMARY | 2025-09-21 15:30 | XMS_ITS | Encounter Summary ---
Author Organization [employer] Address [address], [place] [address] Care Team Providers Care Drying Oven Attendant Name Role Phone Lui Sims PA-C Primary Care Provider [phone] Reason for Visit * Reason Comments Follow-up Wrists Encounter Details Date Type Department Care Team (Latest Contact Info) Description 09/21/2025 3:30 PM COMMISSARY STEWARD Office Visit [facility] Orthopaedics & Sports Medicine [address] [place] [address] Humberto Suarez MD [address] [facility] [address] [place], [place] [address] Bilateral wrist pain (Primary Dx); Slac (scapholunate advanced collapse) of wrist, left; Slac (scapholunate advanced collapse) of wrist, right Social History Tobacco Use Types Packs/Day Years [...] 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 Not on file Not on file Not on file documented as of this encounter Progress Notes * Humberto Suarez MD - 09/21/2025 3:30 PM CST Vinicio Kellogg [id number] Date of Visit: 09/22/25 Orthopedic Hand and Upper Extremity Consultation Chief Complaint: Right wrist pain Interval history: Vinicio returns to discuss today his wrist pain. He reports bilateral upper extremity pain he describes pain radiating from his shoulders down his arms. He reports pain in his neck and pain in each of his wrists. He recently underwent updated cervical spine imaging ever like to discuss this has well today. History of Present Illness: Vinicio Kellogg is a 70 y.o. male who presents for evaluation of his bilateral wrist. He reports pain in each of his wrist his left is worse than his right he has had pain for years. Seems to be getting worse. He has never had cortisone injections into the wrist. He does not use braces to often. Hewill occasionally use ibuprofen for pain relief. Both of his wrist pains are worse with activity. 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 Heavy chores seemed to cause the pain to worsen. He has had previous carpal tunnel release bilaterally done about a decade ago. His pain is now something that is off and on more and less intense. He will use [id number] medicines like ibuprofen. He is here today to discuss any treatment options. 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 He is a nonsmoker. 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 y/o male. Alert. PULMONARY: non-labored breathing, symmetrical chest rise, CARDIAC: Distal perfusion to the upper extremities is intact MUSCULOSKELETAL: Bilateral Wrist: Insp/Palp: Prior healed carpal tunnel incision release. Patient is painful and tender to palpate atthe dorsal radiocarpal articulation scaphoid Valenzuela shift test causes pain. Some slight crepitationcan be appreciated. Dorsal radial swelling present. Stability: No obvious instability. Strength: Extensors 5/5. Flexors 5/5. AROM: Flexion is 45??, Extension is 50??. Special Tests: Tinel's sign is negative at the carpal tunnel. Carpal compression test is negative. Gil's test is negative. Fingers: Insp/Palp: Arthritic deformities are present. Fingers move reasonable well patient is able to form a composite fist. Skin: Skin warm and dry with no evidence of unusual rashes or suspicious lesions. Neuro: Neurovascularly intact at the affected site. Psych: Mood and affect is normal. Cognition: Alert and oriented x3. Memory is intact. 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 Dorsal intercalated segmental instability SLAC wrist arthrosis. Type 2 lunate. The scaphoid is articulating primarily with this capitate at this point. Radiographs of the right wrist: Severe midcarpal arthritis. Evidence of chondrocalcinosis. Distal radioulnar joint arthritis. Assessment: Diagnosis and Associated Orders ICD-10-CM 1. Bilateral wrist pain M25.531 M25.532 2. 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 Slac (scapholunate advanced collapse) of wrist, right M19.131 Plan: We rediscussed in visited the pathophysiology of SLAC wrist arthritis. Essentially Vinicio's optionsat this time are to use braces cortisone injections or simply deal with the pain. From a surgical perspective we could consider a scaphoid excision and intercarpal fusion. Ultimately I do not feel that this has his most pressing issue at this time. He was recently referred to visit with the spine team . I recommend he meet with our cervical spine colleagues to decide whether anything needs to be done with his neck or not. He will follow up with me in the future to consider cortisone injection into the wrist. Humberto Suarez MD ISSARY STEWARD documented in this encounter Plan of Treatment Upcoming Encounters Date Type Department Care Team (Late st Contact Info) Description 10/03/2025 8:35 AM COMMISSARY STEWARD Appointment [facility] [address] [place] [address] Lui Sims PA-C [address] [place], [place] [id number] 10/12/2025 2:20 PM COMMISSARY STEWARD Appointment [facility] Orthopaedics & Sports Medicine [address] [place] [address] Humberto Suarez MD [address] [facility] [place] [address] [place] [address] 11/14/2025 8:15 AM COMMISSARY STEWARD Appointment Rheumatology at [facility] [place] [address] [address] [address] [place] [address] Desilet, René W, DO [address] [place] [address] 12/19/2025 8:40 AM COMMISSARY STEWARD Appointment [facility] Orthopedic [facility] [address] [place] [address] Teresa Espitia MD [address] [place] [address] documented as of this encounter Visit Diagnoses Diagnosis Bilateral wrist pain- Primary Slac (scapholunate advanced collapse) of wrist, left Slac (scapholunate advanced collapse) of wrist, right documented in this encounter Care Teams Drying Oven Attendant Relationship Specialty Start Date End Date Lui Sims PA-C [address] [place] [address] PCP - General Physician Ice Cream Machine Operator 11/13/20 documented as of this encounter
--- OUTSIDE RECORDS SUMMARY | 2025-09-26 09:15 | XMS_ITS | Encounter Summary ---
Author Organization [facility] Address [address], [place] [address] Care Team Providers Care Guide Cruise Name Role Phone Lui Sims PA-C Primary Care Provider [phone] Reason for Visit * Procedure/Equipment (Routine) - Incomplete Specialty Diagnoses / Procedures Referred By Garcia t Referred To Contact Diagnoses Cervical radiculopathy Procedures XR Cervical Spine 2 Views Flex/Ext Only Jimy Farrar MD [address] [facility] [place] [address] Phone: tel: fax: Referral ID Status Reason Start Date Expiration Date V isits Requested Visits Authorized [id number] Incomplete 09/26/2025 12/26/2026 1 1 Encounter Details Date Type Department Care Team (Late st Contact Info) Description 09/26/2025 9:15 AM TOOL ENGINEER Ancillary Procedure [facility] [address] [place], [place] [address] Jimy Farrar MD [address] [facility] [place] [address] Social History Tobacco Use Types Packs/Day Years [...] 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 [employer] Not on file Not on file Not on file documented as of this encounter Plan of Treatment Upcoming Encounters Date Type Department Care Team (Late st Contact Info) Description 10/03/2025 8:35 AM TOOL ENGINEER Appointment [facility] [address] [place] [phone] Lui Sims PA-C [address] [place] [address] 10/12/2025 2:20 PM TOOL ENGINEER Appointment [facility] Orthopaedics & Sports Medicine [address] [place] [phone] Humberto Suarez MD [address] [facility] [address] [place], [place] [address] 11/14/2025 8:15 AM TOOL ENGINEER Appointment Rheumatology at [facility] [place] [address] [address] [address] [place], [place] [address] Desilet, René W, DO [address] [place] [address] 12/19/2025 8:40 AM TOOL ENGINEER Appointment [facility] [address] [place] [address] Teresa Espitia MD [address] [facility] [place] [address] documented as of this encounter Procedures Procedure Name Priority Date/Time Associated Diagnosis Comments XR CERVICAL SPINE 2 VIEWS FLEX/EXT ONLY Routine 09/26/2025 9:28 AM TOOL ENGINEER Cervical radiculopathy documented in this encounter Results * XR Cervical Spine 2 Views Flex/Ext Only (09/26/2025 9:28 AM TOOL ENGINEER) Anatomical Region Laterality Modality Spine, C-Spine, Neck Digital Rad iography Narrative 09/26/2025 9:31 AM TOOL ENGINEER EXAM: XR CERVICAL SPINE 2 VIEWS FLEX/EXT ONLY INDICATION: Cervical radiculopathy COMPARISON: 09/14/2025. FINDINGS: No acute bony abnormalities. Advanced degenerative disc and facet disease throughout the cervical spine. Apparent fusion at C5-6 again noted. No prevertebral soft tissue swelling. No significant instability seen on flexion-extension views. Signed by: Julian Chaidez 09/26/2025 9:31 AM Procedure Note Julian Chaidez MD - 09/26/2025 EXAM: XR CERVICAL SPINE 2 VIEWS FLEX/EXT ONLY INDICATION: Cervical radiculopathy COMPARISON: 09/14/2025. FINDINGS: No acute bony abnormalities. Advanced degenerative disc and facet diseasethroughout the cervical spine. Apparent fusion at C5-6 again noted. Noprevertebral soft tissue swelling. No significant instability seen onflexion-extension views. Signed by: Julian Chaidez 09/26/2025 9:31 AM Jimy Farrar MD RAD GD Final R esult documented in this encounter Visit Diagnoses Not on filedocumented in this encounter Care Teams Guide Cruise Relationship Specialty Start Date End Date Lui Sims PA-C [address] [place] [address] PCP - General Physician Manager Diabetes 11/13/20 documented as of this encounter
--- OUTSIDE RECORDS SUMMARY | 2025-09-26 09:30 | XMS_ITS | Encounter Summary ---
Author Organization [facility] Address [address], [place] [address] Care Team Providers Care Cmv Driver Name Role Phone Lui Sims PA-C Primary Care Provider [phone] Reason for Referral * Consult/Transfer Care (Routine) - New Request Specialty Diagnoses / Procedures Referred By Garcia rodriguez Referred To Contact Diagnoses Polyarthralgia Subha Farrar MD [address] [place] [address] Phone: tel: fax: Referral ID Status Reason Start Date Expiration Date V isits Requested Visits Authorized [id number] New Request 09/26/2025 12/26/2026 1 1 Scheduling Instructions Your clinician has recommended an appointment with [facility]. You may call [phone] for help scheduling your appointment. We suggest you call your health insurance company about your coverage and benefits for this appointment. Question Answer Appointment Urgency? Non-Urgent Reason for visit? synovitis, swollen wrists/hands, elevated CRP; polyarthralgias, improved with NSAID's and prednisone [employer] * Procedure/Equipment (Routine) - New Request Specialty Diagnoses / Procedures Referred By Garcia rodriguez Referred To Contact Diagnoses Bilateral hand numbness Subha Farrar MD [address] [place] [address] Phone: tel: fax: Referral ID Status Reason Start Date Expiration Date V isits Requested Visits Authorized [id number] New Request 09/26/2025 12/26/2026 1 1 Scheduling Instructions Your clinician has recommended an appointment with [facility]. You can quickly make your appointment online at [employer]/[email or web address]. You can also call [phone] for help scheduling your appointment. We suggest you call your health insurance company about your coverage and benefits for this appointment. Question Answer Appointment Urgency? Non-Urgent Reason For Visit Ulnar Neuropathy/Cubital Tunnel Syndrome Number of Limbs Upper Limb Upper Limbs Bilateral [employer] * Procedure/Equipment (Routine) - Incomplete Specialty Diagnoses / Procedures Referred By Contac t Referred To Contact Diagnoses Cervical radiculopathy Procedures XR Cervical Spine 2 Views Flex/Ext Only Subha Farrar MD [address] [facility] [place] [address] Phone: tel: fax: Referral ID Status Reason Start Date Expiration Date V isits Requested Visits Authorized [id number] Incomplete 09/26/2025 12/26/2026 1 1 [employer] Reason for Visit * Reason Comments CONSULT * Consult/Transfer Care (Routine) - New Request Specialty Diagnoses / Procedures Referred By Contac t Referred To Contact Diagnoses Cervical radiculopathy Foraminal stenosis of cervical region 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, RETAIL PHARMACIST, DATABASE ARCHITECT [address] [place] [address] Phone: tel: fax: Referral ID Status Reason Start Date Expiration Date V isits Requested Visits Authorized [id number] New Request 09/21/2025 12/21/2026 1 1 Encounter Details Date Type Department Care Team (Late st Contact Info) Description 09/26/2025 9:30 AM CHILD CARE ATTENDANT [employer]CHOOL Office Visit [facility] Orthopedic [facility] [address] [place] [address] Subha Farrar MD [address] [facility] [place] [address] Cervical radiculopathy (Primary Dx); Bilateral hand numbness; Polyarthralgia Social History Tobacco Use Types Packs/Day Years [...] 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 Dr. Subha Farrar MD Orthopedic Spine Surgeon Medication Requests: Prescriptions are not filled on weekends or on weekdays after 3:00 PM. For all medication refills: Request a refill using [employer] or contact your pharmacy. What is Know Your Cost? Know Your Cost is a service for patients and patient/members to call and receive personalized cost information and estimates across our care group. The phone number is (COST) Thursday - Thursday 8 AM to 5 PM Advanced Imaging Scheduling: To schedule an MRI, Ultrasound, or Image guided injection at [facility] please call [phone]. To schedule an MRI or CT at a [facility] location please call [phone]. [facility] Workers' Compensation [address] [place], [place] [address] (Phone) Email: [email or web address] Release of Information: Radiology/Imaging [address] [place] [address] (Phone) Health Information Management [address] [place] [address] (Phone) Gen[employer] Schedule your EMG: Call [phone] to schedule an appointment with [facility] or [facility] [place] Call [phone] to schedule an appointment with [facility] - [place] Call [phone] to schedule an appointment with [facility]UROLOGY - [facility] OR Call [phone] to schedule an appointment with [facility] Will call with results of EMG study and next steps [employer] documented in this encounter Progress Notes * Subha Farrar MD - 09/26/2025 12:00 AM CST NAME: HALEY KELLOGG CSN: [id number] CLINIC NOTE DATE OF SERVICE: 09/26/2025 : 1955 REASON FOR VISIT: Question cervical radiculopathy. HISTORY OF PRESENT ILLNESS: Mr. Kellogg is a very pleasant 70-year-old gentleman, who comes in as a referral from 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. Patient has a complex history related to polyarthralgias. He has diffuse pain with arthritis and describes swelling in multiple joints. He notes that the swelling significantly improves with anti-inflammatories. He notes pain that is worse at the start of the day and gets better throughout the day as he is more active. He notes that his hands and wrists are puffy as well as his elbows now. He notes that he has numbness and tingling in the pinky and ring finger bilaterally, right worse than left. He also has been seen with [facility] and has been seeing hip and lumbar folks there. He is scheduled to have an injection in the near future. PAST MEDICAL HISTORY: Patient reports overall being healthy. He reports hypertension. He also has ahistory of bilateral carpal tunnel releases many years ago. 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 EXAM: He has a non-myopathic gait pattern. He has swollen bilateral hands and wrists. He has synovitis of bilateral dorsal wrists. He has difficulty making a fist bilaterally. He has full 5/5 strength to bilateral upper and lower extremities. I am unable to elicit Jerald reflex on examination today, but note from 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 indicated a positive Jerald on prior examination. I do not see hyperreflexia in the lower extremities. Negative ankle clonus. There is equivocal Tinel at the cubitaltunnels bilaterally. IMAGING REVIEW: Cervical MRI dated 09/14/2025 is reviewed. This shows what appears to be an autofusion from C2 to C4 as well as C5-C6. There is resulting disc degeneration and stenosis at C4-5 and C6-C7. He does have some moderate neural foraminal stenosis at C7-T1 bilaterally. Most recent EMG that I have access to is from 2014 which shows moderate carpal tunnel. LABORATORY REVIEW: Patient had a recent CRP from 09/11/2025, which was markedly elevated at 10.1. Nine months ago, it was normal at 0.2. ASSESSMENT AND PLAN: A 70-year-old gentleman with, 1. Polyarthralgias, wrist synovitis, elevated CRP, question inflammatory arthritis. 2. 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 3. History of bilateral carpal tunnel surgery, positive Tinel at the cubital tunnel. I had a long discussion with the patient about his symptoms. I reviewed things with him that there is a wide range of things on the differential. He does have multilevel cervical foraminal stenosis. I think that an EMG would be most helpful in listing whether this is a peripheral nerve entrapment or potential cervical impingement. In this case, I think with his history of bilateral carpal tunnel syndrome and surgeries as well as wrist issues, I think EMG of the bilateral upper extremities will be the next appropriate test. Secondly, there is a concern of polyarthralgias as well as his swollen joints. He has synovitis on examination today. He also has elevated CRP from a couple of weeks ago. He previously did have a rheumatologic workup back in November which was unrevealing. I think that rather than doing other rheumatologic panel, it may make sense for him to see a longwall shearer operator to see if there is a unifying diagnosis considering the amount of swelling in his hands today. He agrees. I will put a referral in to Rheumatology. We will get bilateral upper extremity EMG. All questions answered. SUBHA FARRAR MD STONEY/AQS /[id number] [employer] documented in this encounter Plan of Treatment Upcoming Encounters Date Type Department Care Team (Late st Contact Info) Description 10/03/2025 8:35 AM CHILD CARE ATTENDANT [employer]CHOOL Appointment [facility] [address] [place] [address] Lui Sims PA-C [address] [place] [address] 10/12/2025 2:20 PM CHILD CARE ATTEND[employer] Appointment [facility] Orthopaedics & Sports Medicine [address] [place] [address] [place] [address] [place] [address] [address] [place] [address] 11/14/2025 8:15 AM CHILD CARE ATTENDANT [employer]OL Appointment Rheumatology at [facility] [place] [address] [address] [address] [place] [address] René Rivas DO [address] [place] [address] 12/19/2025 8:40 AM CHILD CARE [employer]OL Appointment [facility] Orthopedic [place] [id number] [place] [address] Teresa Espitia MD [address] [place] [address] Scheduled Referrals Name Type Priority Associated Diagnoses Orde r Schedule REHAB--EMG ELECTRICAL NERVE CONDUCTION STUDY (AMB) Referral Routine Bilateral hand numbness Ordered: 09/26/2025 Rheumatology Consult-Adults Referral Routine Polyarthralgia Ordered: 09/26/2025 documented as of this encounter Procedures Procedure Name Priority Date/Time Associated Diagnosis Comments XR CERVICAL SPINE 2 VIEWS FLEX/EXT ONLY Routine 09/26/2025 9:28 AM CHILD CARE ATTENDANT [employer]OL Cervical radiculopathy documented in this encounter Results * XR Cervical Spine 2 Views Flex/Ext Only (09/26/2025 9:28 AM CHILD [employer]ARE ATT[employer]) Anatomical Region Laterality Modality Spine, C-Spine, Neck Digital Rad iography Narrative 09/26/2025 9:31 AM CHILD CARE ATTENDANT [employer]OL EXAM: XR CERVICAL SPINE 2 VIEWS FLEX/EXT [...] Signed by: Julian Chaidez 09/26/2025 9:31 AM Subha Farrar MD RAD GD Final R esult documented in this encounter Visit Diagnoses Diagnosis Cervical radiculopathy- Primary Brachial neuritis or radiculitis nos Bilateral hand numbness Disturbance of skin sensation Polyarthralgia Pain in joint, multiple sites documented in this encounter Care Teams Cmv Driver Relationship Specialty Start Date End Date Lui Sims PA-C [address] [place] [address] PCP - General Physician Unloading Checker 11/13/20 documented as of this encounter
[2025-10-01 10:33] VITALS: BP 147/75; PULSE 70; RESP 20; TEMP 36.9; O2SAT 98; BMI 21.4
--- NOTE | 2025-10-01 11:26 | ED.GENADULT ---
HPI - General Adult General Date Seen: 10/01/25 Chief complaint: Back Injury/Pain Stated complaint: in alot of pain Time Seen by Provider: 10/01/25 10:51 History of Present Illness HPI narrative: Patient is a 70-year-old man here with complaints of generalized pain, particularly pain and swelling in his hands. He has been having trouble for at least a month, really it looks like his arthritis type pain goes back till at least November of this year. He doctors through [facility] and has seen several people for these symptoms, going through the notes he has with him it looks like has seen orthopedics as well as his primary PA, he has an appointment coming up on Thursday with his regular doctor, and has appointment scheduled for an EMG and rheumatology in November and December. He has had a cervical spine MRI which showed significant neural foraminal stenosis, but no acute findings. He has pain he says in his entire body, he is not really able to be more specific than that although he says his hands are so painful that he can not even use them. He has got swelling of both hands as well which he says was initially notable more on the left than the right but now they are pretty equal. It sounds like his CRP was elevated at 10, he does not know what his sed rate was, he had an RADHA drawn but does not with the results of that was. He was on a Medrol Dosepak at some point in the past month, did not note significant improvement with that but seems to feel worse now that it is done. He is here today primarily because he does not have anything for pain management at home. He has tried Tylenol and it does not work. He says no but he has been willing to give him anything stronger, he is hoping that his primary doctor will be able to work with him on that when he sees him on Thursday but he does not think he can make it till then. He does have an appointment with a pain clinic scheduled as well. Related Data Home Medications ?Medication ?Instructions ?Recorded ?Confirmed Fish Oil 10/01/25 aspirin 10/01/25 atenolol 10/01/25 calcium 10/01/25 fluoxetine 40 mg capsule 40 mg PO DAILY 10/01/25 10/01/25 lisinopril 10 mg tablet 10 mg PO DAILY 10/01/25 10/01/25 multivitamin 10/01/25 phenytoin sodium extended PO 10/01/25 simvastatin 40 mg tablet 40 mg PO DAILY 10/01/25 10/01/25 Allergies Allergy/AdvReac Type Severity Reaction Status Date / Time No Known Drug Allergies Allergy Verified 10/01/25 10:39 Review of Systems Status of ROS: Reports: 10 or more systems reviewed and unremarkable except as noted in History and below Exam Narrative: Exam Narrative: Vital signs reviewed In general, an alert, nontoxic elderly male. Conversant, pleasant. Head: Normocephalic, atraumatic. Eyes: Sclera clear. Pupils equal and reactive. No icterus. ENT: Mucous membranes moist. Neck: Supple without adenopathy. Heart: Regular rate and rhythm without murmur. Lungs: Clear. No increased work of breathing, crackles or wheezes. Extremities: Well perfused, pulses intact. He has edema noted in both hands, no erythema or warmth. Neurologic: Alert, conversant. Speech fluent, face symmetric. Moves all extremities equally. Skin: Warm, dry well perfused. Affect: Normal. Const: Vital Signs, click to edit/add: Vital Signs - 24 hr 10/01/25 10:33 Temperature 98.5 F Pulse Rate [Pulse Oximeter] 70 Respiratory Rate 20 Blood Pressure [Ri ght Upper Arm] 147/75 H Pulse Oximetry 98 Oxygen Delivery Me thod Room Air Course Course ED Course: Patient presents with generalized pain, elevated inflammatory markers, swelling in his hands. Discussed with him that I do not have a lot to add in terms of the workup of this, I agree with rheumatology as a next step. I do not see anything that requires emergent intervention today, but we did discuss ways to manage his pain. I think in the short term he is going to require narcotic pain medication although we discussed that this is probably not the best long-term strategy and I encouraged him to keep his appointment with the Pain Clinic. I am also going to put him on a longer slow taper of prednisone. It is not clear to me what diagnoses are suspected at this time, whether this might be rheumatoid, polymyalgia, or other, but I wonder if he somewhat worse coming off of that steroid taper. Follow-up with primary care on Thursday as planned. I gave him 10 oxycodone, and a steroid taper. Diagnosis: Arthralgias and arthritis Vital Signs Vital signs: Initial Vital Signs Temperature 98.5 F 10/01/25 10:33 Temperature Source Temporal Artery Scan 10/01/25 10:33 Pulse Rate 70 10/01/25 10:33 Respiratory Rate 20 10/01/25 10:33 Blood Pressure 147/75 H 10/01/25 10:33 Blood Pressure Mean 99 10/01/25 10:33 Blood Pressure Position Sitting 10/01/25 10:33 Pulse Oximetry 98 10/01/25 10:33 Oxygen Delivery Method Room Air 10/01/25 10:33 Vital Signs Temperature 98.5 F 10/01/25 10:33 Pulse Rate 70 10/01/25 10:33 Respiratory Rate 20 10/01/25 10:33 Blood Pressure 147/75 H 10/01/25 10:33 Pulse Oximetry 98 10/01/25 10:33 Oxygen Delivery Method Room Air 10/01/25 10:33 Temperature 98.5 F 10/01/25 10:33 Pulse Rate 70 10/01/25 10:33 Respiratory Rate 20 10/01/25 10:33 Blood Pressure 147/75 H 10/01/25 10:33 Pulse Oximetry 98 10/01/25 10:33 Oxygen Delivery Method Room Air 10/01/25 10:33 Discharge Plan Discharge Clinical Impression: Arthritis Patient Disposition: Home, Self-Care Condition: Unchanged Additional Instructions: As discussed, take Tylenol 1000 mg 3 times daily. You can use oxycodone for uncontrolled pain as needed. Discussed further pain medication management with your primary doctor on Thursday. I have prescribed prednisone, for a slow taper. Start with 4 tablets a day for 3 days, then 3 tablets a day for 3 days, then 2 tablets a day for 3 days, then 1 tablet a day for 2 days, then 1/2 tablet for 2 days. Prescriptions: No Action aspirin atenolol calcium fluoxetine 40 mg capsule 40 mg PO DAILY lisinopril 10 mg tablet 10 mg PO DAILY multivitamin phenytoin sodium extended [Dilantin Extended] PO simvastatin 40 mg tablet 40 mg PO DAILY Fish Oil Stand Alone Forms: [facility] Inst[facility]
--- OUTSIDE RECORDS SUMMARY | 2025-10-01 11:43 | XMS_ITS | Encounter Summary ---
[facility] Organization [facility] Address [address], [place] [address] Care Team Providers Care Horticultural Farmer Name Role Phone Lui Sims PA-C Primary Care Provider [phone] Encounter Details Date Type Department Care Team (Late Contact Info) Description 09/10/2015 Correspondence [facility] Internal Medicine [address] [place] [address] Vinicio Marmolejo MD [address] [place] [address] PROOF OF DELIVERY Social History Tobacco Use Types Packs/Day Years Used Date Smoking Tobacco: Former Cigarettes 0.5 18 0 11/02/1973 - 11/02/1991 Smokeless Tobacco: Never Comments:smoked off and on Alcohol Use Standard Drinks/Week Comments No 0 (1 standard drink = 0.6 oz pur e alcohol) Sex and Gender Information Value Date Recorded Sex Assigned at Not on file Legal Sex Male 4:32 AM CDT Gender Identity Not on file Sexual Orientation Not on file 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[employer] Not on file Not on file Not on file documented as of this encounter Plan of Treatment Upcoming Encounters Date Type Department Care Team (Late Contact Info) Description 10/03/2025 8:35 AM FREIGHT RATE ANALYST Appointment [facility] [address] [place] [address] Lui Sims PA-C [address] [place] [address] 10/12/2025 2:20 PM FREIGHT RATE ANALYST Appointment [facility] Orthopaedics & Sports Medicine [address] [place] [phone] Humberto Suarez MD [address] [facility] [address] [place] [address] 11/14/2025 8:15 AM FREIGHT RATE ANALYST Appointment Rheumatology at [facility] [place] [address] [place] [address] [place] [address] Desilet, René W, DO [address] [place] [address] 12/19/2025 8:40 AM FREIGHT RATE ANALYST Appointment [facility] Orthopedic [facility] [address] [place] [address] Teresa Espitia MD [address] [place] [address] documented as of this encounter Visit Diagnoses Not on filedocumented in this encounter Care Teams Horticultural Farmer Relationship Specialty Start Date End Date Lui Sims PA-C [address] [place], [place] [phone] PCP - General Physician Leadership Development Instructor 11/13/20 documented as of this encounter
--- OUTSIDE RECORDS SUMMARY | 2025-10-01 11:43 | XMS_ITS | Encounter Summary ---
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 [address] 11/14/2025 8:15 AM RECOVERY ROOM NURSE Appointment Rheumatology at [facility] [place] [address] [address] [address] [place] [address] Desilet, René W, DO [address] [place] [address] 12/19/2025 8:40 AM RECOVERY ROOM NURSE Appointment [facility] Orthopedic [facility] [address] [place] [address] Teresa Espitia MD [address] [place] [address] documented as of this encounter Visit Diagnoses Not on filedocumented in this encounter Care Teams Intern Product Marketing Manager Relationship Specialty Start Date End Date Lui Sims PA-C [address] [place] [address] PCP - General Physician Rod Filler 11/13/20 documented as of this encounter
--- OUTSIDE RECORDS SUMMARY | 2025-10-01 11:43 | XMS_ITS | Encounter Summary ---
Author Organization [facility] Address [address] [address] Care Team Providers Care Broke Worker Name Role Phone Amador Sims PA-C Primary Care Provider [phone] Reason for Visit * Reason Comments Refill lisinopril (ZESTRIL) 5 MG tablet [Pharmacy Med Name: LISINOPRIL TABS 5MG] Encounter Details Date Type Department Care Team (Late st Contact Info) Description 09/07/2025 [address] 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 Patient due for Lab(s). Cr and K are overdue (performed over 15 months ago, required every 12 months) Review pended order for accuracy and sign if appropriate, Clinician to order lab(s) and document ifpatient is due for lab only visit or office visit and lab, and Route to [place] to schedule appointment Requested Prescriptions Pending Prescriptions Disp Refills lisinopril (ZESTRIL) 5 MG tablet [Pharmacy Med Name: LISINOPRIL TABS 5MG] 90 Tablet 0 Sig: TAKE 1 TABLET DAILY ONAL CARE HOME ADMINISTRATOR * Nicola Del Angel Xrwcomm - 09/07/2025 12:24 AM CST lisinopril (ZESTRIL) 5 MG tablet [Pharmacy Med Name: LISINOPRIL TABS 5MG] Medication started: 09/15/2019 Last ordered by AMADOR SIMS F: 06/09/2025 (90 days ago) QTY: 90, Refills: 0, Sig: take 1 tablet daily (unchanged) -> Cr and K are overdue (performed over 15 months ago, required every 12 months) Last qualifying visit: 12/01/2024 (with AMADOR SIMS) Next scheduled visit: None Cr: 0.75 mg/dL on 06/01/2024 K: 4.6 mEq/L on 06/01/2024 [facility] Embedded Refills, Reference: [id number], 09/07/2025 12:24:08 AM PERSONAL CARE HOME ADMINISTRATOR, Pool: HP Refill Centralized Services - Primary Care ([id number]) A * Nicola Del Angel Xrwcomm - 09/07/2025 12:24 AM CST The following lab order(s) may be associated with the Result Note below: COMPREHENSIVE METABOLIC PANEL Notes recorded by Amador Sims on 06/01/2024 at 8:54 PM CDT Your lab results are in and look pretty good. Your hemoglobin, electrolytes, kidney, and liver functions were all within normal limits. Your A1C is stable at 6.1 which is good to see. Your phenytoin levels are slightly low which we can discuss in clinic. Your cholesterol levels look great, and prostate cancer screening was negative. If you have any further questions or concerns please let me know. A * Nicola Del Angelwcomyonis - 09/07/2025 12:24 AM CST The following lab order(s) may be associated with the following Patient Result Comment (Entered by Amador Sims PA-C at 06/01/2024 7:54 PM): COMPREHENSIVE METABOLIC PANEL Your lab results are in and look pretty good. Your hemoglobin, electrolytes, kidney, and liver functions were all within normal limits. Your A1C is stable at 6.1 which is good to see. Your phenytoin levels are slightly low which we can discuss in clinic. Your cholesterol levels look great, and prostate cancer screening was negative. If you have any further questions or concerns please let me know. ONAL CARE HOME ADMINISTRATOR documented in this encounter Plan of Treatment Upcoming Encounters Date Type Department Care Team (Late st Contact Info) Description 10/03/2025 8:35 AM PERSONAL CARE HOME ADMINISTRATOR Appointment [facility] [address] [place] [phone] Amador Sims PA-C [address] [place], [place] [phone] 10/12/2025 2:20 PM PERSONAL CARE HOME ADMINISTRATOR Appointment [facility] Orthopaedics & Sports Medicine [address] [place] [phone] Humberto Suarez MD [address] [facility] [address] [place] [address] 11/14/2025 8:15 AM PERSONAL CARE HOME ADMINISTRATOR Appointment Rheumatology at [facility] [place] [address] [address] [address] [place], [place] [address] DesiletRené, DO [address] [place], [place] [address] 12/19/2025 8:40 AM PERSONAL CARE HOME ADMINISTRATOR Appointment [facility] [address] [place] [address] Teresa Espitia MD [address] [facility] [place] [id number] documented as of this encounter Visit Diagnoses Diagnosis 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
--- OUTSIDE RECORDS SUMMARY | 2025-10-01 11:43 | XMS_ITS | Encounter Summary ---
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[employer] Not on file Not on file Not on file documented as of this encounter Plan of Treatment Upcoming Encounters Date Type Department Care Team (Late st Contact Info) Description 10/03/2025 8:35 AM CONSULTING SALES EXECUTIVE Appointment [facility] [address] [place] [address] Lui Sims PA-C [address] [place] [address] 10/12/2025 2:20 PM CONSULTING SALES EXECUTIVE Appointment [facility] Orthopaedics & Sports Medicine [address] [place] [phone] Humberto Suarez MD [address] [facility] [address] [place] [address] 11/14/2025 8:15 AM CONSULTING SALES EXECUTIVE Appointment Rheumatology at [facility] [place] [address] [address] [address] [place] [address] Desilet, René W, DO [address] [place] [address] 12/19/2025 8:40 AM CONSULTING SALES EXECUTIVE Appointment [facility] Orthopedic [facility] [address] [place] [address] Teresa Espitia MD [address] [place] [address] documented as of this encounter Visit Diagnoses Not on filedocumented in this encounter Care Teams Veterinary Microbiologist Relationship Specialty Start Date End Date Lui Sims PA-C [address] [place], [place] [phone] PCP - General Physician Shopper 11/13/20 documented as of this encounter
--- OUTSIDE RECORDS SUMMARY | 2025-10-01 11:43 | XMS_ITS | Clinical Summary ---
[facility] Address [address] [place] [address] Care Team Providers Care Geek Squad Manager Name Role Phone Lui Sims PA-C Primary Care Provider [phone] Source Comments You are receiving this document as you are listed as the primary care provider,follow-up provider, or the patient has been referred to you for consultation.This is in compliance with the Medicare and[facility] EHR Incentive Program,which states Providers who transition their patient to another setting of careor provider of care or refers their patient to another provider of care shouldprovide summary care record for each transition of care or referral. [facility] Allergies No known active allergies Medications ASPIRIN 81 MG OR CHEWIndications:U nspecified essential hypertension (HRC) Take one tablet by mouth every day. 100 3 008 Active MULTIPLE VITAMIN TABSIndications:P [facility] Take one tablet by mouth every day. 30 11 008 Active omega-3 fatty acids (AKA MAXEPA,FISH OIL) 1000 MG capsuleIndication s:Unspecified essential hypertension (HRC) One capsule twice daily for cholesterol 180 4 009 Active Calcium 600 MGIndications:Ted t injury Take 1 Tablet (600 mg) by mouth daily. Active atenolol (TENORMIN) 50 MG tabletIndications :Essential hypertension (HRC) Take 1 Tablet (50 mg) by mouth daily. 90 Tablet 3 025 Active simvastatin (ZOCOR) 40 MG tabletIndications :Mixed hyperlipidemia (HRC) Take 1 Tablet (40 mg) by mouth daily at bedtime. 90 Tablet 3 025 Active FLUoxetine (PROZAC) 40 MG capsuleIndication s:Recurrent major depressive disorder, in full remission (HRC) Take 1 Capsule (40 mg) by mouth daily. 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 21 Tablet 025 Active Additional Information Patient not taking.Reported on 09/26/2025 tiZANidine (ZANAFLEX) 4 MG tabletIndications :Cervical radiculopathy,For aminal stenosis of cervical region Take 0.5-1 Tablets (2-4 mg) by mouth two times daily as needed. 30 Tablet 1 025 Active lisinopril (ZESTRIL) 5 MG tabletIndications :Localization-rel ated focal epilepsy with simple partial seizures (HRC),Essential hypertension (HRC),Recurrent major depressive disorder, in full remission (HRC),Encounter for Medicare annual wellness exam,Mixed hyperlipidemia (HRC) TAKE 1 TABLET DAILY 90 Tablet 025 2024 Discontinued Active Problems Problem Noted Date Diagnosed Date Pancreatic cyst 06/23/2022 Adenomatous polyp of colon 09/04/2021 Overview (09/04/2021): Colonoscopy completed 08/2021. Repeat in 7 years (08/2028). 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 11/26/2005 Overview (08/02/2015): Epic Essential hypertension 11/26/2005 Overview (08/02/2015): Epic Resolved Problems Problem Noted Date Diagnosed Date Resolved Date Hyperopia 11/07/2013 07/27/2017 Choroidal nevus 10/18/2008 07/27/2017 Senile nuclear sclerosis 10/18/2008 Overview (06/24/2017): Nuclear cataracts - OU Encounters Date Type Department Care Team Description 09/26/2025 9:30 AM GLASS BLOCK BENDER Office Visit [facility] [place] [address] [place] [address] Jimy Farrar MD Cervical radiculopathy (Primary Dx); Bilateral hand numbness; Polyarthralgia 09/26/2025 9:15 AM GLASS BLOCK BENDER Ancillary Procedure [facility] [address] [place] [address] Jimy Farrar MD 09/21/2025 3:30 PM GLASS BLOCK BENDER Office Visit [facility] [id number] [place] [phone] Humberto Suarez MD Bilateral wrist pain (Primary Dx); Slac (scapholunate advanced collapse) of wrist, left; Slac (scapholunate advanced collapse) of wrist, right 09/21/2025 1:00 PM GLASS BLOCK BENDER Office Visit [facility] [address] [place] [phone] 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, 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, [employer] Cervical radiculopathy (Primary Dx); Foraminal stenosis of cervical region; Neck pain; Cervical stenosis of spinal canal; DDD (degenerative disc disease), cervical (HRC) 09/14/2025 11:00 AM GLASS BLOCK BENDER Ancillary Procedure [place] [facility] [address] [address] [place] [address] [place] [address] Kaylah Carrion PA-C Neck pain; Bilateral arm pain 09/14/2025 8:10 AM GLASS BLOCK BENDER [facility] [place] [facility] [address] [facility] [address] [place] [address] Kaylah Carrion PA-C Bilateral shoulder pain, unspecified chronicity 09/14/2025 8:05 AM GLASS BLOCK BENDER Ancillary Procedure [facility] [address] [address] [address] [place] [address] Kaylah Carrion PA-C Bilateral shoulder pain, unspecified chronicity 09/14/2025 7:55 AM GLASS BLOCK BENDER Ancillary Procedure [facility] [address] Rad[address] [address] [place] [address] Kaylah Carrion PA-C Neck pain 09/14/2025 7:45 AM GLASS BLOCK BENDER Office Visit [facility] [address] [place] [address] Kaylah Carrion PA-C Neck pain (Primary Dx); Bilateral shoulder pain, unspecified chronicity; Bilateral arm pain; Elevated C-reactive protein (CRP) 09/11/2025 10:50 AM GLASS BLOCK BENDER Lab Visit [facility] [id number] [place] [phone] Acute pain of left shoulder; Left wrist pain; Pain in joint of left shoulder; Neck pain 09/11/2025 9:40 AM GLASS BLOCK BENDER Office Visit [place] [address] [facility] [address] [place] [phone] Lorin Castellano MD Acute pain of left shoulder; Left wrist pain; Pain in joint of left shoulder; Neck pain; Lumbar pain 09/11/2025 Results Follow-Up [facility] [address] [facility] [address] [place] [address] Lorin Castellano MD 09/11/2025 Telephone [facility] [address] [place] [phone] Humberto Suarez MD QUESTIONS, REFERRAL (2-Day Emergent) 09/07/[address] [facility] [place] Practice [address] [place] [address] Lui Sims PA-C Refill (lisinopril (ZESTRIL) 5 MG tablet [Pharmacy Med Name: LISINOPRIL TABS 5MG]) 07/25/2025 8:00 AM CDT Ancillary Procedure [facility] [place] [address] [place] [address] Genna Leo PA-C Pancreatic cyst (HRC); IPMN (intraductal papillary mucinous neoplasm) (HRC) 07/25/2025 Results Follow-Up [facility] at [facility] at [address] [place] [address] Genna Leo PA-C from Last 3 Months Immunizations Immunization Administration Dates Next Due Flu Vac (3+ yrs) 09/20/2012(Deferred: Patient Re fused) Influenza IIV4 (Quadrivalent ) 0.5mL (64703) 09/10/2015 Moderna Monovalent 12+ 06/03/2021,04/30/2021 PCV13 (Prevnar) 08/18/2019 PPSV23 (Pneumovax) 10/03/2021 Td 06/10/2010 Tdap 09/10/2015 Family History Medical History Relation Name Comments Cancer, Melanoma Father Pa Coronary Artery Disease Father Pa 72 Hyperlipidemia Father Pa Hypertension Father Pa Cancer, Other Mother Bone Cerebrovascular Disease Mother Osteoporosis Mother Schizophrenia Brother Cataract Paternal Grandfather Amblyopia/Strabismus Negative Family History Glaucoma Negative Family History Macular Degeneration Negative Family History Retinal Detachment Negative Family History Relation Name Status Comments Father Pa Mother (Age 73) Brother Maternal Grandfather Maternal Grandmother Paternal Grandfather Paternal Grandmother Sister Social History Tobacco Use Types Packs/Day Years Used Date Smoking Tobacco: Former Cigarettes 0.7 34.5 0 11/02/1968 - 11/02/1991 Smokeless Tobacco: Never Tobacco Cessation:Counseling Given: Not Answered Comments:smoked off and on - marijuana Alcohol [...] Industry Job Start Date Job End Date [employer] Not on file Not on file Not on file Last Filed Vital Signs Vital Sign Reading Time Taken Comments Blood Pressure 156/70 09/11/2025 10:18 AM GLASS BLOCK BENDER Pulse 54 09/11/2025 10:18 AM GLASS BLOCK BENDER Temperature 36.9 C (98.4 F) 09/11/2025 10:18 AM GLASS BLOCK BENDER Respiratory Rate 16 09/11/2025 10:18 AM GLASS BLOCK BENDER Oxygen Saturation 100% 09/11/2025 10:18 AM GLASS BLOCK BENDER Inhaled Oxygen Concentration - - Weight 71.2 kg (157 lb) 12/01/2024 8:28 AM GLASS BLOCK BENDER Height 177.8 cm (5' 10) 07/11/2024 8:28 AM CDT Body Mass Index 22.53 07/11/2024 8:28 AM CDT Plan of Treatment Upcoming Encounters Date Type Department Care Team (Late st Contact Info) Description 10/03/2025 8:35 AM GLASS BLOCK BENDER Appointment [facility] [address] [place] [phone] Lui Sims PA-C [address] [place], [place] [phone] 10/12/2025 2:20 PM GLASS BLOCK BENDER Appointment [facility] [address] [place] [phone] Humberto Suarez MD [address] [place] [address] [place] [address] 11/14/2025 8:15 AM GLASS BLOCK BENDER Appointment Rheumatology at [facility] [address] [address] [address] [address] [place] [address] Desilet René DarleneDO [address] [place] [address] 12/19/2025 8:40 AM GLASS BLOCK BENDER Appointment [facility] [place] [address] [place] [address] Teresa Espitia MD [address] [facility] [place] [address] Health Maintenance Due Date Last Done Comments HepA Vaccine (1 of 2 - Risk 2-dose series) 1973 Zoster/Shingles Vaccine (1 of 2) 2004 HepB Vaccine (1) 2014 Prediabetes: HGBA1C 06/01/2025 06/01/2024, 06/09/2023, 05/09/2022, Additional history exists COVID-19 Vaccine ( - season) 2025 06/03/2021, 04/30/2021 Influenza Vaccine (#1) 2025 09/10/2015 DTaP/Tdap/Td Vaccine (2 - Tdap) 09/10/2025 09/10/2015, 06/10/2010 Medicare Annual Wellness Visit 12/01/2025 12/01/2024, 07/11/2024, 06/15/2023, Additional history exists Cholesterol 06/01/2029 06/01/2024, 08/06/2023, 05/09/2022, Additional history exists Colonoscopy 07/03/2029 07/03/2022, 01/01, 08/06/2009, Additional history exists RSV Vaccine (1 - 1-dose 75+ series) 2029 Hep C Screening (Preventive Services) Completed 08/04/2017 Pneumococcal Vaccine 50+ Yrs Completed 10/03/2021, 08/18/2019 Abdominal Aortic Aneurysm (AAA) Screening Completed 10/17/2021 PSA Screening Discussion Discontinued 024, 06/09/2023, 05/09/2022, Additional history exists Hib Vaccine Aged Out No longer eligi ble based on patient's age to complete this topic MCV4 Vaccine Aged Out No longer eligi ble based on patient's age to complete this topic Meningococcal B Vaccine Aged Out No l onger eligible based on patient's age to complete this topic Procedures Procedure Name Priority Date/Time Associated Diagnosis Comments XR CERVICAL SPINE 2 VIEWS FLEX/EXT ONLY Routine 09/26/2025 9:28 AM GLASS BLOCK BENDER Cervical radiculopathy MR CERVICAL SPINE WO IV CONT Routine 09/14/2025 11:23 AM GLASS BLOCK BENDER Neck pain Bilateral arm pain XR SHOULDER RT 2+ VIEWS Routine 09/14/2025 8:10 AM GLASS BLOCK BENDER Bilateral shoulder pain, unspecified chronicity XR SHOULDER LT 2+ VIEWS Routine 09/14/2025 8:09 AM GLASS BLOCK BENDER Bilateral shoulder pain, unspecified chronicity XR CERVICAL SPINE 2 VIEWS Routine 09/14/2025 8:09 AM GLASS BLOCK BENDER Neck pain COMPLETE BLOOD COUNT-W/DIFF STAT 09/11/2025 10:55 AM GLASS BLOCK BENDER Acute pain of left shoulder Left wrist pain Pain in joint of left shoulder Neck pain CBC AND DIFFERENTIAL PANEL STAT 09/11/2025 10:55 AM GLASS BLOCK BENDER Acute pain of left shoulder Left wrist pain Pain in joint of left shoulder Neck pain C-REACTIVE PROTEIN STAT 09/11/2025 10 :55 AM GLASS BLOCK BENDER Acute pain of left shoulder Left wrist pain Pain in joint of left shoulder Neck pain MR MRCP WO IV CONT Routine 07/25/2025 8: 30 AM CDT Pancreatic cyst (HRC) IPMN (intraductal papillary mucinous neoplasm) (HRC) PROSTATIC SPECIFIC ANTIGEN(SCREEN) Routine 06/01/2024 7:11 AM CDT Screening for prostate cancer HGB A1C Routine 06/01/2024 7:11 AM CDT Prediabetes LIPID PANEL & DIRECT LDL (IF NEEDED) Routine 06/01/2024 7:11 AM CDT Screening for lipid disorders COLONOSCOPY Routine 07/03/2022 3:05 PM CDT Weight loss Nausea US ABD AAA SCREENING Routine 10/17/2021 9:44 AM GLASS BLOCK BENDER Screening for AAA (abdominal aortic aneurysm) HEPATITIS C ANTIBODY, WITH REFLEX (ANTI-HCV) Routine 08/04/2017 8:54 AM CDT Need for hepatitis C screening test from Last 3 Months or Most Recently Relevant to Health Maintenance Results * XR Cervical Spine 2 Views Flex/Ext Only (09/26/2025 9:28 AM GLASS BLOCK BENDER) Anatomical Region Laterality Modality Spine, C-Spine, Neck Digital Rad iography Narrative 09/26/2025 9:31 AM GLASS BLOCK BENDER EXAM: XR CERVICAL SPINE 2 VIEWS FLEX/EXT [...] Signed by: Julian Chaidez 09/26/2025 9:31 AM us Jimy Farrar MD RAD GD Final R esult * MR Cervical Spine WO IV Cont (09/14/2025 11:23 AM GLASS BLOCK BENDER) Anatomical Region Laterality Modality Spine, C-Spine, Neck, Vascular, MSK Magnetic Resonance Impressions 09/15/2025 2:32 PM GLASS BLOCK BENDER 1. Severe bilateral neural foraminal stenosis at the C3-4 level. 2. Ewzb-am-huofjcgf central stenosis and severe left-sided neural foraminal stenosis at the C4-5 level. 3. Mild central stenosis and moderate right-sided neural foraminal stenosis at the C6-7 level. 4. Moderate to severe bilateral neural foraminal stenosis at the C7-T1 level. 5. Additional degenerative changes as above. No evidence for spinal cord signal abnormality. Signed by: Nino Jacobs 09/15/2025 2:32 PM Narrative 09/15/2025 2:32 PM GLASS BLOCK BENDER EXAM: MR CERVICAL SPINE WO IV CONT [...] cord appear otherwise unremarkable. Axial: C1-2 level: Tqya-my-gdsydfpr degenerative ligamentous hypertrophy dorsal to the odontoid. C2-3 level: Mild right-sided facet hypertrophic change. C3-4 level: Severe bilateral neural foraminal stenosis secondary to uncinate spurring and moderate right-sided facet hypertrophic change, axial images 16. C4-5 level: Glpg-ol-maoijyni posterior disc osteophyte complex contributes to mcfy-ui-nwyexkla central stenosis AP thecal sac 8 mm. [...] spinal cordappear otherwise unremarkable. Axial: C1-2 level: Ayxq-qv-tvjqhnao degenerative ligamentous hypertrophy dorsalto the odontoid. C2-3 level: Mild right-sided facet hypertrophic change. C3-4 level: Severe bilateral neural foraminal stenosis secondary touncinate spurring and moderate right-sided facet hypertrophic change,axial images 16. C4-5 level: Bwrz-wh-srmzfktc posterior disc osteophyte complex contributesto qubp-eg-tdreylke central stenosis AP thecal sac 8 mm. [...] foraminal stenosis at the C3-4 level. 2. Cymp-gm-fpktvdcy central stenosis and severe left-sided neuralforaminal stenosis at the C4-5 level. 3. Mild central stenosis and moderate right-sided neural foraminalstenosis at the C6-7 level. 4. Moderate to severe bilateral neural foraminal stenosis at the C7-D6osfhg. 5. Additional degenerative changes as above. No evidence for spinal cordsignal abnormality. Signed by: Nino Jacobs 09/15/2025 2:32 PM us Kaylah Carrion PA-C RAD MRI Final Result * XR Shoulder Rt 2+ Views (09/14/2025 8:10 AM GLASS BLOCK BENDER) Anatomical Region Laterality Modality Upper Extremity, Shoulder Digita l Radiography Narrative 09/14/2025 8:12 AM GLASS BLOCK BENDER EXAM: XR SHOULDER RT 2+ VIEWS INDICATION: [...] by: Alfonzo Vital 09/14/2025 8:12 AM us Kaylah Carrion PA-C RAD GD Final Result * XR Shoulder Lt 2+ Views (09/14/2025 8:09 AM GLASS BLOCK BENDER) Anatomical Region Laterality Modality Upper Extremity, Shoulder Digita l Radiography Narrative 09/14/2025 8:12 AM GLASS BLOCK BENDER EXAM: XR SHOULDER LT 2+ VIEWS INDICATION: [...] Signed by: James Bethea 09/14/2025 8:12 AM Kaylah BHATTI-C RAD GD Final Result * XR Cervical Spine 2 Views (09/14/2025 8:09 AM GLASS BLOCK BENDER) Anatomical Region Laterality Modality Spine, C-Spine, Neck Digital Rad iography Narrative 09/14/2025 8:14 AM GLASS BLOCK BENDER EXAM: XR CERVICAL SPINE 2 VIEWS INDICATION: [...] Kaylah Carrion PA-C RAD GD Final Result * (ABNORMAL) Complete Blood Count-W/Diff (09/11/2025 10:55 AM GLASS BLOCK BENDER) [facility] WBC 10.0 3.5 - 10.5 x10(9)/L 09/11/2025 10:59 AM [facility] RBC 4.17(L) 4.32 - 5.72 x10(12)/L 09/11/2025 10:59 AM [facility] Hemoglobin 13.0(L) 13.5 - 17.5 g/dL 09/11/2025 10:59 AM [facility] HCT 39.2 38.8 - 50.0 % 09/11/2025 10:59 AM [facility] MCV 94.0 80.0 - 100.0 fL 09/11/2025 10:59 AM [facility] MCH 31.2 27.6 - 33.3 pg 09/11/2025 10:59 AM [facility] MCHC 33.2 31.5 - 35.2 g/dL 09/11/2025 10:59 AM [facility] RDW 11.8(L) 11.9 - 15.5 % 09/11/2025 10:59 AM [facility] Platelets 253 150 - 450 x10(9)/L 09/11/2025 10:59 AM [facility] Neutrophil Absolute 7.7(H) 1.7 - 7.0 10(9)/L 09/11/2025 10:59 AM [facility] Lymphocyte Absolute 1.3 1.0 - 4.8 10(9)/L 09/11/2025 10:59 AM [facility] Monocyte Absolute 0.8 0.2 - 0.9 10(9)/L 09/11/2025 10:59 AM [facility] Eosinophil Absolute 0.1 0.0 - 0.5 10(9)/L 09/11/2025 10:59 AM [facility] Basophil Absolute 0.0 0.0 - 0.3 10(9)/L 09/11/2025 10:59 AM [facility] Immature Granulocyte % 0.2 0.0 - 0.5 % 09/11/2025 10:59 AM [facility] Blood Venipuncture / Unknown 09/11/2025 10:55 AM GLASS BLOCK BENDER 09/11/2025 10:55 AM [facility] us Lorin Castellano MD LAB_1 Final Result [facility] CLIA: [id number] [address] [place] [address], [facility] * (ABNORMAL) C-Reactive Protein (09/11/2025 10:55 AM GLASS BLOCK BENDER) C-Reactive Protein 10.1(H) 0.0 - 0.5 mg/dL 09/11/2025 12:35 PM GLASS BLOCK BENDER [facility] Blood Venipuncture / Unknown 09/11/2025 10:55 AM GLASS BLOCK BENDER 09/11/2025 10:55 AM GLASS BLOCK BENDER us Lorin Castellano MD LAB_1 Final Result [facility] CLIA: [id number] [address] [place] [address] * MR MRCP WO IV Cont (07/25/2025 8:30 AM CDT) Anatomical Region Laterality Modality Abdomen Magnetic Resonan ce Impressions 07/25/2025 10:18 AM CDT Stable side-branch IPMNs. Continued 2 year MRCP surveillance recommended. Abnormal findings requiring follow-up. Recommend: MRCP in 2 years. Recommendation: imaging Signed by: Jd Mitchell 07/25/2025 10:18 AM Narrative 07/25/2025 10:18 AM CDT EXAM: MR MRCP WO IV CONT INDICATION: Follow up pancreatic cyst COMPARISON: 07/08/2024 and 05/29/2023 TECHNIQUE: Dedicated MRCP without contrast. 2D and 3D MRCPs were obtained and reviewed. FINDINGS: A few scattered side-branch IPMNs throughout the pancreas. The largest is seen at the pancreas body/tail junction on series 11, image 12 measuring 1.7 cm. This is unchanged compared to 05/29/2023. It contains internal septations though no mural nodularity. Additional smaller side-branch IPMNs elsewhere do not appear significantly changed compared to 05/29/2023. The main pancreatic duct is not dilated. Unremarkable appearance of the liver, gallbladder, spleen and adrenal glands. Tiny renal cysts bilaterally. No hydronephrosis. No dilated loops of bowel. Degenerative changes in the spine. Unremarkable appearance of the lung bases. Procedure Note Jd Mitchell MD - 07/25/2025 EXAM: MR MRCP WO IV CONT INDICATION: Follow up pancreatic cyst COMPARISON: 07/08/2024 and 05/29/2023 TECHNIQUE: Dedicated MRCP without contrast. 2D and 3D MRCPs were obtainedand reviewed. FINDINGS: A few scattered side-branch IPMNs throughout the pancreas. The largest isseen at the pancreas body/tail junction on series 11, image 12 measuring1.7 cm. This is unchanged compared to 05/29/2023. It contains internalseptations though no mural nodularity. Additional smaller side-branchIPMNs elsewhere do not appear significantly changed compared to05/29/2023. The main pancreatic duct is not dilated. Unremarkable appearance of the liver, gallbladder, spleen and adrenalglands. Tiny renal cysts bilaterally. No hydronephrosis. No dilatedloops of bowel. Degenerative changes in the spine. Unremarkableappearance of the lung bases. IMPRESSION Stable side-branch IPMNs. Continued 2 year MRCP surveillancerecommended. Abnormal findings requiring follow-up. Recommend: MRCP in 2 years. Recommendation: imaging Signed by: Jd Mitchell 07/25/2025 10:18 AM us Genna Leo PA-C RAD MRI Final Re sult * (ABNORMAL) Lipid Panel and Direct LDL(If Needed) (06/01/2024 7:11 AM [facility]) Cholesterol 142 0 - 199 mg/dL 06/01/2024 10:56 AM [facility] Triglyceride 125 <=149 mg/dL 06/01/2024 10:56 AM [facility] HDL Cholesterol 38(L) >=40 mg/dL 4 10:56 AM [facility] LDL, Calculated 79 <130 mg/dL 4 10:56 AM [facility] Non HDL Chol, Calculated 104 <=159 mg/dL 06/01/2024 10:56 AM [facility] Cholesterol/HDL Ratio 3.7 <=5.0 06/01/2024 10:56 AM [facility] Hours Fasting 12.0 8 - 12 Hours 06/01/2024 10:56 AM [facility] Blood Venipuncture / Unknown 06/01/2024 7:11 AM CDT 06/01/2024 7:11 AM CDT Lui Sims PA-C LAB_1 Final Resul t [facility] [address] [place] [address], [facility] [address] [place] [address] * Prostatic Specific Antigen (Screen) (06/01/2024 7:11 AM CDT) Pathologist [facility] Prostatic Specific Antigen 3.4 0.0 - 4.0 ng/mL 06/01/2024 12:26 PM CDT [facility] Blood Venipuncture / Unknown 06/01/2024 7:11 AM CDT 06/01/2024 7:11 AM CDT Narrative [facility] - 06/01/2024 12:26 PM CDT The Nexavis PSA Chemiluminescent immunoassay is used. Results obtained with different test methods or kits cannot be used interchangeably. Lui Sims PA-C LAB_1 Final Resul t Performing Organization Address City/[facility] Co de Phone Number [facility] [address] [place], [place] [address] * (ABNORMAL) Hgb A1C (06/01/2024 7:11 AM CDT) Hemoglobin A1C 6.1(H) <=5.6 % 06/01/2024 1:52 PM CDT [facility] Estimated Average Glucose (Calc) 128 < 117 mg/dL 06/01/2024 1:52 PM CDT [facility] Comment:Estimated average gl ucose (eAG) converts A1c into glucose units (mg/dL) and estimates average glucose over the past approximately 3 months. The eAG reference interval (<117 mg/dL) corresponds to an A1c of <5.7%. Blood Venipuncture / Unknown 06/01/2024 7:11 AM CDT 06/01/2024 7:11 AM CDT [place] [facility] - 06/01/2024 1:52 PM CDT For patients not previously diagnosed with diabetes: 5.7-6.4%: Increased risk for diabetes 6.5% and greater: Diagnostic for diabetes For patients diagnosed with diabetes: <8.0%: Goal of therapy for ages 18-75 Clinicians may recommend a higher or lower goal for specific individuals. us Lui Sims PA-C LAB_1 Final Resul t [facility] [address] [id number] * Colonoscopy (07/03/2022 3:05 PM CDT) 07/03/2022 3:05 PM CDT Narrative GI ([facility]OVATION) - 07/03/2022 5:22 PM CDT Instrument Name: 255 (Loaner) Indications: Weight loss Providers: Kaitlyn Kinney MD, Kasi Arvizu RN, Elena Bae RN Referring MD: Kinsey Abad NP Medicines: Monitored Anesthesia Care Complications: No immediate complications. Procedure: Pre-Anesthesia Assessment: - Prior to the procedure, a History and Physical was performed, and patient medications and allergies were reviewed. The patient is competent. The risks and benefits of the procedure and the sedation options and risks were discussed with the patient. All questions were answered and informed consent was obtained. Patient identification and proposed procedure were verified by the physician and the nurse in the procedure room. Mental Status Examination: alert and oriented. Airway Examination: normal oropharyngeal airway and neck mobility. Respiratory Examination: clear to auscultation. CV Examination: normal. Prophylactic Antibiotics: The patient does not require prophylactic antibiotics. Prior Anticoagulants: The patient has taken no anticoagulant or antiplatelet agents. ASA Grade Assessment: II - A patient with mild systemic disease. After reviewing the risks and benefits, the patient was deemed in satisfactory condition to undergo the procedure. The anesthesia plan was to use monitored anesthesia care (MAC). Immediately prior to administration of medications, the patient was re-assessed for adequacy to receive sedatives. The heart rate, respiratory rate, oxygen saturations, blood pressure, adequacy of pulmonary ventilation, and response to care were monitored throughout the procedure. The physical status of the patient was re-assessed after the procedure. After I obtained informed consent, the scope was passed under direct vision. Prior to sedation, patient identity and procedure was reverified. Throughout the procedure, the patient's blood pressure, pulse, and oxygen saturations were monitored continuously.The Colonoscope was introduced through the anus and advanced to the terminal ileum, with identification of the appendiceal orifice and IC valve. The quality of the bowel preparation was adequate to identify polyps. Findings: A 3 mm polyp was found in the transverse colon. The polyp was sessile. The polyp was removed with a cold biopsy forceps. Resection and retrieval were complete. A few diverticula were found in the sigmoid colon and descending colon. Internal hemorrhoids were found during retroflexion. The hemorrhoids were moderate. The terminal ileum appeared normal. Impression: - One 3 mm polyp in the transverse colon, removed with a cold biopsy forceps. Resected and retrieved. - Diverticulosis in the sigmoid colon and in the descending colon. - Internal hemorrhoids. - The examined portion of the ileum was normal. Recommendation: - Discharge patient to home (ambulatory). - Await pathology results. - Repeat colonoscopy in 7 years for surveillance. Procedure Code(s): --- Professional --- 02539 --- Technical --- 61102 Diagnosis Code(s): --- Professional --- K63.5 K64.8 R63.4 K57.30 --- Technical --- K63.5 K64.8 R63.4 K57.30 CPT copyright 2020 [employer]. All rights reserved. The codes documented in this report are preliminary and upon back shoe worker review may be revised to meet current compliance requirements. Attending Participation: Kaitlyn Kinney MD 07/03/2022 5:22:01 PM This report has been signed electronically. Number of Addenda: 0 Note Initiated On: 07/03/2022 3:05 PM Procedure Note Gregoria, Kaitlyn Leslie MD - 07/03/2022 Instrument Name: 255 (Mckayla) Indications: Weight loss Providers: Kaitlyn Kinney MD, Kasi Arvizu RN, Elena Bae RN Referring MD: Kinsey Abad NP Medicines: Monitored Anesthesia Care Complications: No immediate complications. Procedure: Pre-Anesthesia Assessment: - Prior to the procedure, a History and Physical was performed, and patient medications and allergies were reviewed. The patient is competent. The risks and benefits of the procedure and the sedation options and risks were discussed with the patient. All questions were answered and informed consent was obtained. Patient identification and proposed procedure were verified by the physician and the nurse in the procedure room. Mental Status Examination: alert and oriented. Airway Examination: normal oropharyngeal airway and neck mobility. Respiratory Examination: clear to auscultation. CV Examination: normal. Prophylactic Antibiotics: The patient does not require prophylactic antibiotics. Prior Anticoagulants: The patient has taken no anticoagulant or antiplatelet agents. ASA Grade Assessment: II - A patient with mild systemic disease. After reviewing the risks and benefits, the patient was deemed in satisfactory condition to undergo the procedure. The anesthesia plan was to use monitored anesthesia care (MAC). Immediately prior to administration of medications, the patient was re-assessed for adequacy to receive sedatives. The heart rate, respiratory rate, oxygen saturations, blood pressure, adequacy of pulmonary ventilation, and response to care were monitored throughout the procedure. The physical status of the patient was re-assessed after the procedure. After I obtained informed consent, the scope was passed under direct vision. Prior to sedation, patient identity and procedure was reverified. Throughout the procedure, the patient's blood pressure, pulse, and oxygen saturations were monitored continuously.The Colonoscope was introduced through the anus and advanced to the terminal ileum, with identification of the appendiceal orifice and IC valve. The quality of the bowel preparation was adequate to identify polyps. Findings: A 3 mm polyp was found in the transverse colon. The polyp was sessile. The polyp was removed with a cold biopsy forceps. Resection and retrieval were complete. A few diverticula were found in the sigmoid colon and descending colon. Internal hemorrhoids were found during retroflexion. The hemorrhoids were moderate. The terminal ileum appeared normal. Impression: - One 3 mm polyp in the transverse colon, removed with a cold biopsy forceps. Resected andretrieved. - Diverticulosis in the sigmoid colon and in the descending colon. - Internal hemorrhoids. - The examined portion of the ileum was normal. Recommendation: - Discharge patient to home (ambulatory). - Await pathology results. - Repeat colonoscopy in 7 years for surveillance. Procedure Code(s): --- Professional --- 24338 --- Technical --- 02390 Diagnosis Code(s): --- Professional --- K63.5 K64.8 R63.4 K57.30 --- Technical --- K63.5 K64.8 R63.4 K57.30 CPT copyright 2020 [employer]. All rights reserved. The codes documented in this report are preliminary and upon back shoe worker review may be revised to meet current compliance requirements. Attending Participation: Kaitlyn Kinney MD 07/03/2022 5:22:01 PM This report has been signed electronically. Number of Addenda: 0 Note Initiated On: 07/03/2022 3:05 PM us Kaitlyn Kinney MD DIGESTIVE CARE Edited Res ult - Final GI (PROVATION) [place], [place] * US Abd AAA Screening (10/17/2021 9:44 AM GLASS BLOCK BENDER) Anatomical Region Laterality Modality Abdomen Ultrasound 10/17/2021 9:16 AM GLASS BLOCK BENDER Impressions 10/17/2021 11:28 AM GLASS BLOCK BENDER HISTORY: Evaluate for AAA. COMPARISON: None. FINDINGS: Proximal abdominal aorta measures (AP x Width): 2.8 x 2.8 cm Mid abdominal aorta measures (AP x Width): 2.2 x 2.2 cm Distal abdominal aorta measures (AP x Width): 2.0 x 2.0 cm Right common iliac artery measures 1.3 cm in maximum caliber. Left common iliac artery measures 1.2 cm in maximum caliber. IMPRESSION: No evidence of abdominal aortic aneurysm. PN Consensus recommendation for asymptomatic abdominal aortic aneurysm follow- up: 3.0-3.4 cm, recommend follow-up ultrasound in 2 years 3.5-4.4 cm, recommend follow-up ultrasound in 1 year 4.5-4.9 cm, recommend follow-up ultrasound in 6 months 5.0 cm or greater OR growth exceeding 5 mm in 6 months or 10 mm in 1 year, recommend consultation with vascular surgery Narrative Procedure Note James Bethea MD - 10/17/2021 IMPRESSION HISTORY: Evaluate for AAA. COMPARISON: None. FINDINGS: Proximal abdominal aorta measures (AP x Width): 2.8 x 2.8 cm Mid abdominal aorta measures (AP x Width): 2.2 x 2.2 cm Distal abdominal aorta measures (AP x Width): 2.0 x 2.0 cm Right common iliac artery measures 1.3 cm in maximum caliber. Left common iliac artery measures 1.2 cm in maximum caliber. IMPRESSION: No evidence of abdominal aortic aneurysm. PN Consensus recommendation for asymptomatic abdominal aortic aneurysmfollow-up: 3.0-3.4 cm, recommend follow-up ultrasound in 2 years 3.5-4.4 cm, recommend follow-up ultrasound in 1 year 4.5-4.9 cm, recommend follow-up ultrasound in 6 months 5.0 cm or greater OR growth exceeding 5 mm in 6 months or 10 mm in 1 year,recommend consultation with vascular surgery us Lui Sims PA-C RAD US Final Resul t * Hepatitis C Antibody, with Reflex (08/04/2017 8:54 AM CDT) Anti-HCV Negative (Non Reactive) [facility] Comment: Antibodies to HCV not detected. Does not exclude the possibility of exposure to HCV. 08/04/2017 8:54 AM CDT 08/04/2017 8:55 AM CDT Narrative [facility] - 08/04/2017 1:20 PM CDT Performed at [facility], [address] [place], [place] [id number] us Vinicio Marmolejo MD LAB_1 Final Result [facility] [employer] [phone] from Last 3 Months or Most Recently Relevant to Health Maintenance Insurance MEDICARE [facility] MEDICARE SUPPLEMENT [facility] INSURED DENTAL MEDICARE [facility] MEDICARE SUPPLEMENT MEDICARE [facility] MEDICARE SUPPLEMENT Care Teams Geek Squad Manager Relationship Specialty Start Date End Date Lui Sims PA-C [address] [place] [address] PCP - General Physician Prehemmer 11/13/20
--- OUTSIDE RECORDS SUMMARY | 2025-10-01 11:43 | XMS_ITS | Encounter Summary ---
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 [employer] Not on file Not on file Not on file documented as of this encounter Plan of Treatment Upcoming Encounters Date Type Department Care Team (Late Contact Info) Description 10/03/2025 8:35 AM MANAGER INDUSTRIAL Appointment [facility] [address] [place] [address] Lui Sims PA-C [address] [place] [address] 10/12/2025 2:20 PM MANAGER INDUSTRIAL Appointment [facility] Orthopaedics & Sports Medicine [address] [place] [address] Humberto Suarez MD [address] [facility] [address] [place] [address] 11/14/2025 8:15 AM MANAGER INDUSTRIAL Appointment Rheumatology at [facility] [place] [address] [facility] [address] [place] [address] Desilet, René W, DO [address] [place], [place] [address] 12/19/2025 8:40 AM MANAGER INDUSTRIAL Appointment [facility] Orthopedic [facility] [address] [place] [address] Teresa Espitia MD [address] [place] [address] documented as of this encounter Visit Diagnoses Not on filedocumented in this encounter Care Teams Floral Artist Relationship Specialty Start Date End Date Lui Sims PA-C [address] [place], [place] [id number] PCP - General Physician Industrial Sales Representative 11/13/20 documented as of this encounter
--- OUTSIDE RECORDS SUMMARY | 2025-10-01 11:43 | XMS_ITS | Encounter Summary ---
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 file Not on file Not on file documented as of this encounter Plan of Treatment Upcoming Encounters Date Type Department Care Team (Late Contact Info) Description 10/03/2025 8:35 AM ACCOUNTING RECONCILIATION CLERK Appointment [facility] [address] [place] [address] Lui Sims PA-C [address] [place] [address] 10/12/2025 2:20 PM ACCOUNTING RECONCILIATION CLERK Appointment [facility] Orthopaedics & Sports Medicine [address] [place] [address] Humberto Suarez MD [address] [facility] [address] [place] [address] 11/14/2025 8:15 AM ACCOUNTING RECONCILIATION CLERK Appointment [facility] at [facility] [place] [address] [place] [address] [place] [address] Desilet, René W, DO [address] [place] [address] 12/19/2025 8:40 AM ACCOUNTING RECONCILIATION CLERK Appointment [facility] Orthopedic [facility] [address] [place] [address] Teresa Espitia MD [address] [place] [address] documented as of this encounter Visit Diagnoses Not on filedocumented in this encounter Care Teams Television Repairman Relationship Specialty Start Date End Date Lui Sims PA-C [address] [place], [place] [phone] PCP - General Physician Director And Professor 11/13/20 documented as of this encounter
--- OUTSIDE RECORDS SUMMARY | 2025-10-01 11:43 | XMS_ITS | Encounter Summary ---
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 Not on file Not on file documented as of this encounter Plan of Treatment Upcoming Encounters Date Type Department Care Team (Late Contact Info) Description 10/03/2025 8:35 AM SECRETARIAL TEACHER Appointment [facility] [address] [place] [phone] Lui Sims PA-C [address] [place] [id number] 10/12/2025 2:20 PM SECRETARIAL TEACHER Appointment [facility] Orthopaedics & Sports Medicine [address] [place] [address] Humberto Suarez MD [address] [facility] [address] [place] [address] 11/14/2025 8:15 AM SECRETARIAL TEACHER Appointment Rheumatology at [facility] [place] [address] [address] [address] [place] [address] Desilet, René W, DO [address] [place] [address] 12/19/2025 8:40 AM SECRETARIAL TEACHER Appointment [facility] Orthopedic [facility] [address] [place] [address] Teresa Espitia MD [address] [place] [address] documented as of this encounter Visit Diagnoses Not on filedocumented in this encounter Care Teams Title Assistant Relationship Specialty Start Date End Date Lui Sims PA-C [address] [place] [address] PCP - General Physician [employer] 11/13/20 documented as of this encounter
--- OUTSIDE RECORDS SUMMARY | 2025-10-01 11:43 | XMS_ITS | Encounter Summary ---
Author Organization [facility] Address [address], [place] [address] Care Team Providers Care Precision Aircraft Systems Assembler Name Role Phone Lui Sims PA-C Primary Care Provider [phone] Reason for Visit * Reason Comments QUESTIONS, REFERRAL 2-Day Emergent Encounter Details Date Type Department Care Team (Late st Contact Info) Description 09/11/2025 Telephone [facility] Medicine [address] [place] [address] Humberto Suarez MD [address] [facility] [address] [place], [place] [phone] QUESTIONS, REFERRAL (2-Day Emergent) Social History Tobacco Use Types Packs/Day Years [...] 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 We received a Within 2 Days Emergent Orthopedic Referral today for Left wrist pain and Pain in joint of left shoulder. The referral says Has seen Dr. Suarez before and has an appt in a month but is having a lot of pain, not just in the wrist but in the left shoulder aswell I have NOT contacted pt about this referral yet, because Dr Suarez is scheduling out over a month. Please advise if there are sooner work-in appts we can offer or other recommendations as appropriate. Please also advise if Dr Suarez will look at the shoulder in conjunction with the wrist, or ifpt should schedule a different appt for the shoulder. Describe your symptoms/concerns: Response can be routed back to me (Ksenia Barnes) to contact thepatient for scheduling. When did the issue start: referred 09/11/2025 10:37 AM Have you been seen for this recently?: Yes: Date: 09/11/2025 Provider: [facility] If we are unable to reach you can we leave a detailed message on your voicemail? unknown If we are unable to reach you can we send you a message in [facility] [employer]? unknown [Retail Property Manager/Hot Blaster: Relay to patient; We make every effort to get back to you sameday, however it may take 1-2 business days depending on the nature of the communication.] DDER documented in this encounter Plan of Treatment Upcoming Encounters Date Type Department Care Team (Late st Contact Info) Description 10/03/2025 8:35 AM EMBEDDER Appointment [address] [address] Lui Sims PA-C [address] [place] [address] 10/12/2025 2:20 PM EMBEDDER Appointment [facility] Orthopaedics & Sports Medicine [address] [place] [phone] Humberto Suarez MD [address] [facility] [address] [place] [address] 11/14/2025 8:15 AM EMBEDDER Appointment Rheumatology at [facility] [place] [address] [address] [address] [place] [address] Desilet, René W, DO [address] [place] [address] 12/19/2025 8:40 AM EMBEDDER Appointment [facility] Orthopedic [facility] [address] [place] [address] Teresa Espitia MD [address] [place] [address] documented as of this encounter Visit Diagnoses Not on filedocumented in this encounter Care Teams Precision Aircraft Systems Assembler Relationship Specialty Start Date End Date Lui Sims PA-C [address] [place] [address] PCP - General Physician Code Enforcement Inspector 11/13/20 documented as of this encounter
== END 2025-10-01 11:50 | disposition home or self-care (01) ==
PROVIDERS: Emergency Provider Emergency Medicine
DX: M19.042 Primary osteoarthritis, left hand (principal); M19.041 Primary osteoarthritis, right hand
CPT/HCPCS: 99283; 99284